=== PATIENT | male | born 1990 | race Caucasian/White ===

== ENCOUNTER 2018-04-24 19:24 | Emergency (ER) | payer OTHER ==
[2018-04-24 20:21] LABS: ABS Basophils 0 10^3/ul (0-0.2); ABS Eosinophils 0 10^3/ul (0-0.6); ABS Lymphocytes 1.2 10^3/ul (1.0-4.8); ABS Monocytes 0.4 10^3/ul (0-0.8); ABS Nucleated RBC 0 10^3/ul; Eosinophil % 0.1 % (0-6); Hematocrit 44 % (42-52); Hemoglobin 15.2 g/dl (14.0-18.0); Lymphocyte % 26.6 % (25-47); Mean Corpuscular HGB Conc 35 g/dl (31-36); Mean Corpuscular Hemoglobin 33 pg (27-31); Mean Corpuscular Volume 93 fL (80-94); Mean Platelet Volume 8.8 um3 (7.4-10.4); Nucleated Red Blood Cells % 0.1; Platelet Count 166 10^3/ul (150-450); Red Blood Count 4.68 10^6/ul (4.00-5.40); Red Cell Distribution Width 13 % (10.5-15); White Blood Count 4.6 10^3/ul (3.5-10.8)
[2018-04-24 20:46] LABS: EGFR Non-African American 86.3 (>60)
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
[2018-04-24 21:10] VITALS: BP 120/74
--- NOTE | 2018-04-25 07:28 | RAD ---
Indication: Confusion. 2 views of the chest including dual energy PA views demonstrate no mediastinal shift. Heart is of normal size and configuration. Lung caal are clear. IMPRESSION: No active cardiopulmonary disease is noted.
== END 2018-04-24 21:09 | disposition home or self-care (01) ==
LOC: ED 19:24
DX: F41.0 Panic disorder [episodic paroxysmal anxiety] (principal); R06.02 Shortness of breath; R07.89 Other chest pain; Z85.71 Personal history of Hodgkin lymphoma; F17.200 Nicotine dependence, unspecified, uncomplicated
CPT/HCPCS: 36415; 71046; 80053; 84484; 85025; 85379; 86140; 93005; 99283

== ENCOUNTER 2019-02-01 15:52 | Emergency (ER) | payer OTHER ==
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
[2019-02-01 16:43] LABS: ABS Basophils 0 10^3/ul (0-0.2); ABS Eosinophils 0 10^3/ul (0-0.6); ABS Lymphocytes 0.8 10^3/ul (1.0-4.8); ABS Monocytes 0.4 10^3/ul (0-0.8); ABS Neutrophils 5.5 10^3/ul (1.5-7.7); ABS Nucleated RBC 0 10^3/ul; Eosinophil % 0.3 %; Hematocrit 44 % (36-46); Hemoglobin 15.4 g/dL (14.0-18.0); Lymphocyte % 12.1 %; Mean Corpuscular HGB Conc 35 g/dL (31-36); Mean Corpuscular Hemoglobin 34 pg (27-31); Mean Corpuscular Volume 96 fL (80-94); Mean Platelet Volume 8.4 fL (7.4-10.4); Nucleated Red Blood Cells % 0; Platelet Count 170 10^3/uL (150-450); Red Blood Count 4.56 10^6 /uL (4.18-5.48); Red Cell Distribution Width 13 % (10.5-15); White Blood Count 6.8 10^3/uL (3.5-10.8)
[2019-02-01 16:53] LABS: Activated Partial Thrombo Time 27.6 seconds (26.0-36.3); INR 0.91 (0.82-1.09)
--- OUTSIDE RECORDS SUMMARY | 2019-02-01 16:55 | XMS REPORT | Continuity of Care Document ---
:1990 External Reference #:[id number] Author Name Odilontorres Macie Care Team Providers Name Role Phone Deepthi Banuelos M.D. Primary Care Physician Unavailable Payers Date Identification Numbers Payment Provider Subscriber Effective: 2010 Policy Number: [id number] [facility] Tena M Claudio Expires: 2017 Group Number: [id number] [address] PayID: [id number] [place] [address] Policy Number: [id number] Jim Carrasco Group Number: [id number] [address] PayID: [id number] [place] [address] Advance Directives Description No Information Available Problems Active Problems Provider Date Other Hodgkin lymphoma, unspecified site Lane Woo M.D. Onset: [address]obia [address] Woo M.D. Onset: 05/16/[address] epididymis [address] Woo M.D. Onset: 06/28/2018 Family History Date Family Member(s) Observation Comments : (age 59 Father due to Liver Alcoholic cirrhosis Years) Disease Mother No Current Problems Social History Type Date Description Comments Sex Unknown Marital Status Lives With Roommate Occupation Self-employed online sales Tobacco Use Start: Unknown Light tobacco smoker (10 or fewer cigarettes/day) Smoking Status Reviewed: 01/27/19 Light tobacco smoker (10 or fewer cigarettes/day) ETOH Use Drinks 5 Alcoholic Beverages Per Week Tobacco Use Start: Unknown Light tobacco smoker (10 or fewer cigarettes/day) Recreational Drug Use Denies Drug Use Allergies, Adverse Reactions, Alerts Description No Known Drug Allergies Medications Active Medications SIG Qnty Indications Ordering Provider Date Hydroxyzine HCL 1-2 tabs by mouth 60tabs G47.00 Deepthi Banuelos MD 01/27/2019 25mg at bedtime as Tablets needed insomnia Alprazolam 1/2 by mouth once 20tabs F41.0 Deepthi Banuelos MD 12/27/2018 0.5mg a day as needed Tablets for anxiety History Medications Escitalopram Oxalate 1 by mouth every 30tabs F41.9 Deepthi Banuelos MD 2017 - day 12/27/2018 10mg Tablets Alprazolam one by mouth up 14tabs F41.0 Deepthi Banuelos MD 05/16/2018 - 0.25mg to two times 12/27/2018 Tablets daily as needed for anxiety No Active Medications Unknown 02/10/2018 - 05/16/2018 Immunizations CPT Code Status Date Vaccine Lot # [id number] Given 06/28/2018 Influenza Virus Vaccine, Quadrivalent, Split, [id number] Preservative Free Vital Signs Date Vital Result Comment 01/27/2019 9:20am Height 67 inches 5'7" Weight 143.00 lb Heart Rate 65 /min BP Systolic Sitting 123 mmHg BP Diastolic Sitting 74 mmHg BMI (Body Mass Index) 22.4 kg/m2 12/27/2018 9:23am Height 67 inches 5'7" Weight 140.50 lb Heart Rate 97 /min BP Systolic 149 mmHg BP Diastolic 81 mmHg Body Temperature 97.9 F O2 % BldC Oximetry 100 % BMI (Body Mass Index) 22.0 kg/m2 09/20/2018 9:56am Height 67 inches 5'7" Weight 141.00 lb Heart Rate 112 /min BP Systolic Sitting 118 mmHg BP Diastolic Sitting 80 mmHg Body Temperature 98.0 F O2 % BldC Oximetry 98 % BMI (Body Mass Index) 22.1 kg/m2 06/28/2018 7:45am Height 67 inches 5'7" Weight 137.00 lb Heart Rate 64 /min BP Systolic 110 mmHg BP Diastolic 70 mmHg Body Temperature 98.0 F O2 % BldC Oximetry 98 % BMI (Body Mass Index) 21.5 kg/m2 05/16/2018 7:58am Height 67 inches 5'7" Weight 132.00 lb Heart Rate 94 /min BP Systolic Sitting 122 mmHg BP Diastolic Sitting 64 mmHg Body Temperature 98.2 F O2 % BldC Oximetry 97 % BMI (Body Mass Index) 20.7 kg/m2 03/24/2018 3:07pm Height 67 inches 5'7" Weight 136.00 lb Heart Rate 77 /min BP Systolic Sitting 115 mmHg BP Diastolic Sitting 78 mmHg Body Temperature 98.5 F O2 % BldC Oximetry 98 % BMI (Body Mass Index) 21.3 kg/m2 02/10/2018 3:13pm Height 67 inches 5'7" Weight 139.00 lb Heart Rate 75 /min BP Systolic 125 mmHg BP Diastolic 82 mmHg O2 % BldC Oximetry 99 % BMI (Body Mass Index) 21.8 kg/m2 Results Test Date Facility Test Result H/L Range Note CBC Auto Diff 03/21/2018 [facility] White Blood 3.9 10^3/uL N 3.5-10.[address] [place] [address] [phone] Red Blood Count 4.80 10^6/uL N 4.0-5.4 Hemoglobin 15.3 g/dL N 14.0-18.0 Hematocrit 45 % N 42-52 Mean Corpuscular Volume 93 fL N 80-94 Mean Corpuscular Hemoglobin 32 pg High 27-31 Mean Corpuscular HGB Conc 34 g/dL N 31-36 Red Cell Distribution Width 13 % N 10.5-15 Platelet Count 169 10^3/uL N 150-450 Mean Platelet Volume 8.9 um3 N 7.4-10.4 Abs Neutrophils 1.6 10^3/uL N 1.5-7.7 Abs Lymphocytes 1.8 10^3/uL N 1.0-4.8 Abs Monocytes 0.4 10^3/uL N 0-0.8 Abs Eosinophils 0 10^3/uL N 0-0.6 Abs Basophils 0 10^3/uL N 0-0.2 Abs Nucleated RBC 0 10^3/uL Granulocyte % 41.9 % N 38-83 Lymphocyte % 46.1 % N 25-47 Monocyte % 10.9 % High 0-7 Eosinophil % 0.7 % N 0-6 Basophil % 0.4 % N 0-2 Nucleated Red Blood Cells % 0.2 Comp Metabolic Panel 03/21/2018 [facility] Sodium 141 mmol/L N 139-[address] [place] [address] [phone] Potassium 4.1 mmol/L N 3.5-5.0 Chloride 104 mmol/L N 101-111 Co2 Carbon Dioxide 30 mmol/L N 22-32 Anion Gap 7 mmol/L N 2-11 Glucose 100 mg/dL N 70-100 Blood Urea Nitrogen 16 mg/dL N 6-24 Creatinine 1.09 mg/dL N 0.67-1.17 BUN/Creatinine Ratio 14.7 N 8-20 Calcium 10.1 mg/dL N 8.6-10.3 Total Protein 7.1 g/dL N 6.4-8.9 Albumin 4.9 g/dL N 3.2-5.2 Globulin 2.2 g/dL N 2-4 Albumin/Globulin Ratio 2.2 N 1-3 Total Bilirubin 1.90 mg/dL High 0.2-1.0 Alkaline Phosphatase 58 U/L N 34-104 Alt 15 U/L N 7-52 Ast 23 U/L N 13-39 Egfr Non- 81.8 >60 Egfr 105.2 >60 1 Vitamin B12 And 03/21/2018 [facility] Vitamin B12 323 pg/mL N 180-914 2 Folate Serum [address] [place] [address] [phone] Folic Acid (Folate) > 20.00 ng/mL >3.99 3 Laboratory test 03/21/2018 [facility] Vitamin D 22.6 ng/mL N 20-[address]) [place] [address] [phone] TSH (Thyroid Stim Horm) 4.35 mcIU/mL N 0.34-5.60 5 Lipid Profile 03/21/2018 [facility] Triglycerides 52 mg/dL 6 (Trig/Chol/HDL) [address] [place] [address] [phone] Cholesterol 145 mg/dL 7 HDL Cholesterol 59.8 mg/dL 8 LDL Cholesterol 75 mg/dL 9 Basic Metabolic Panel 03/01/2017 [facility] Sodium 138 mmol/L N 133-145 [address] [place] [address] [phone] Potassium 3.6 mmol/L N 3.5-5.0 Chloride 102 mmol/L N 101-111 Co2 Carbon Dioxide 27 mmol/L N 22-32 Anion Gap 9 mmol/L N 2-11 Glucose 154 mg/dL High 70-100 Blood Urea Nitrogen 13 mg/dL N 6-24 Creatinine 1.03 mg/dL N 0.67-1.17 BUN/Creatinine Ratio 12.6 N 8-20 Calcium 9.4 mg/dL N 8.6-10.3 Egfr Non- 88.0 N >60 Egfr 113.2 N >60 10 CBC Auto Diff 01/29/2017 [facility] White Blood 5.3 10^3/uL N 3.5-10.[address] [place] [address] [phone] Red Blood Count 4.66 10^6/uL N 4.0-5.4 Hemoglobin 14.7 g/dL N 14.0-18.0 Hematocrit 43 % N 42-52 Mean Corpuscular Volume 93 fL N 80-94 Mean Corpuscular Hemoglobin 32 pg High 27-31 Mean Corpuscular HGB Conc 34 g/dL N 31-36 Red Cell Distribution Width 14 % N 10.5-15 Platelet Count 179 10^3/uL N 150-450 Mean Platelet Volume 9 um3 N 7.4-10.4 Abs Neutrophils 3.4 10^3/uL N 1.5-7.7 Abs Lymphocytes 1.5 10^3/uL N 1.0-4.8 Abs Monocytes 0.4 10^3/uL N 0-0.8 Abs Eosinophils 0 10^3/uL N 0-0.6 Abs Basophils 0 10^3/uL N 0-0.2 Abs Nucleated RBC 0.01 10^3/uL N Granulocyte % 63.5 % N 38-83 Lymphocyte % 28.5 % N 25-47 Monocyte % 7.3 % N 1-9 Eosinophil % 0.1 % N 0-6 Basophil % 0.6 % N 0-2 Nucleated Red Blood Cells % 0.1 N Comp Metabolic Panel 01/29/2017 [facility] Sodium 139 mmol/L N 133-[address] [place] [address] [phone] Potassium 3.9 mmol/L N 3.5-5.0 Chloride 104 mmol/L N 101-111 Co2 Carbon Dioxide 29 mmol/L N 22-32 Anion Gap 6 mmol/L N 2-11 Glucose 127 mg/dL High 70-100 Blood Urea Nitrogen 15 mg/dL N 6-24 Creatinine 1.24 mg/dL High 0.67-1.17 BUN/Creatinine Ratio 12.1 N 8-20 Calcium 9.8 mg/dL N 8.6-10.3 Total Protein 7.4 g/dL N 6.4-8.9 Albumin 4.9 g/dL N 3.2-5.2 Globulin 2.5 g/dL N 2-4 Albumin/Globulin Ratio 2.0 N 1-3 Total Bilirubin 1.90 mg/dL High 0.2-1.0 Alkaline Phosphatase 47 U/L N 34-104 Alt 11 U/L N 7-52 Ast 18 U/L N 13-39 Egfr Non- 71.0 N >60 Egfr 91.3 N >60 11 Laboratory test finding 01/29/2017 [facility] LDH 102 U/L Low 140-271 [address] [place] [address] [phone] 1 Because ethnic data is not always readily available, this report includes an eGFR for both -Americans and non- Americans. The National Kidney Disease Education Program (NKDEP) does not endorse the use of the MDRD equation for patients that are not between the ages of 18 and 70, are , have extremes of body size, muscle mass, or nutritional status, or are non- or non-. According to the National Kidney Foundation, irrespective of diagnosis, the stage of the disease is based on the level of kidney function: Stage Description GFR(mL/min/1.73 m(2)) 1 Kidney damage with normal or decreased GFR 90 2 Kidney damage with mild decrease in GFR 60-89 3 Moderate decrease in GFR 30-59 4 Severe decrease in GFR 15-29 5 Kidney failure <15 (or dialysis) 2 Normal Range 180 to 914 Indeterminate Range 145 to 180 Deficient Range <145 3 FASTING 12 HOUR 4 FASTING 12 HOUR 5 FASTING 12 HOUR 6 Desirable: <150 Borderline High: 150-199 High: 200-499 Very High: >500 7 Desirable: <200 Borderline High: 200-239 High: >239 8 Low: <40 Desirable: 40-60 High: >60 9 Desirable: <100 Near Optimal: 100-129 Borderline High: 130-159 High: 160-189 Very High: >189 10 Because ethnic data is not always readily available, this report includes an eGFR for both -Americans and non- Americans. The National Kidney Disease Education Program (NKDEP) does not endorse the use of the MDRD equation for patients that are not between the ages of 18 and 70, are , have extremes of body size, muscle mass, or nutritional status, or are non- or non-. According to the National Kidney Foundation, irrespective of diagnosis, the stage of the disease is based on the level of kidney function: Stage Description GFR(mL/min/1.73 m(2)) 1 Kidney damage with normal or decreased GFR 90 2 Kidney damage with mild decrease in GFR 60-89 3 Moderate decrease in GFR 30-59 4 Severe decrease in GFR 15-29 5 Kidney failure <15 (or dialysis) 11 Because ethnic data is not always readily available, this report includes an eGFR for both -Americans and non- Americans. The National Kidney Disease Education Program (NKDEP) does not endorse the use of the MDRD equation for patients that are not between the ages of 18 and 70, are , have extremes of body size, muscle mass, or nutritional status, or are non- or non-. According to the National Kidney Foundation, irrespective of diagnosis, the stage of the disease is based on the level of kidney function: Stage Description GFR(mL/min/1.73 m(2)) 1 Kidney damage with normal or decreased GFR 90 2 Kidney damage with mild decrease in GFR 60-89 3 Moderate decrease in GFR 30-59 4 Severe decrease in GFR 15-29 5 Kidney failure <15 (or dialysis) Procedures Date Code Description Status 06/22/2014 66162 Diffusing Capacity Completed 06/22/2014 11551 Spirometry Incl Graphic Record Completed 06/22/2014 02750 ECHO Transthorasic Realtime 2D W Doppler & Color Flow Hosp Completed Encounters Type Date Location Provider Dx Diagnosis Office Visit 01/27/2019 [facility] Deepthi Banuelos MD F41.9 Anxiety disorder, 9:20a Medicine unspecified C81.70 Other Hodgkin lymphoma, unspecified site G47.00 Insomnia, unspecified Office Visit 01/06/2019 [facility] Ramana Moreira, 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 Office Visit 12/27/2018 [facility] Deepthi Banuelos, D48.5 Neoplasm of uncertain 9:40a Medicine - [place] behavior of skin Rd R03.0 Elevated blood-pressure reading, w/o diagnosis of htn F17.210 Nicotine dependence, cigarettes, uncomplicated F41.9 Anxiety disorder, unspecified L98.9 Disorder of the skin and subcutaneous tissue, unspecified Office Visit 09/20/2018 10:00a [facility] Deepthi Banuelos, F41.9 Anxiety disorder, Medicine - MD unspecified [address] Office Visit 06/28/2018 7:40a [facility] Lane N50.89 Other specified Medicine - Amna, disorders of the [address] M.D. male genital organs Z23 Encounter for immunization Office Visit 05/16/2018 8:00a [facility] [address] Woo, F41.0 Panic disorder Medicine - M.DChristina [episodic [address] paroxysmal anxiety] Office Visit 03/24/2018 3:00p [facility] [address] Woo, R53.83 Other fatigue Medicine - M.DChristina [address] Office Visit 02/10/2018 3:20p [facility] Woo, Z00.01 Encounter for Medicine - M.DChristina general adult [address] medical exam w abnormal findings R53.83 Other fatigue R19.4 Change in bowel habit C81.70 Other Hodgkin lymphoma, unspecified site Z13.220 Encounter for screening for lipoid disorders F17.210 Nicotine dependence, cigarettes, uncomplicated Z00.00 Encntr for general adult medical exam w/o abnormal findings Office Visit 04/01/2011 Neurosurgery Carlton Wolf 722.10 Intervertebral Disc 2:15p [facility] Clementine Morales 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 In the meantime I encourage you to try the Lexapro, and remember that it will take 4-6 weeks for any significant change in your symptoms. If you have any side effects, and the most common ones are upset stomach or nausea , they should fade after a couple of weeks. Also to minimize that have it in the morning with food.I recommend you schedule some regular time outside and in nature.Follow up:2 moC81.70 Other Hodgkin lymphoma, unspecified siteReferral: Ernesto Villavicencio M.D., Hematology & QaonlmsbV98.00 Insomnia, unspecifiedNew Medication:Hydroxyzine HCL 25 mg - 1-2 tabs by mouth at bedtime as needed insomniaComments:try hydroxyzine for sleep
[2019-02-01 16:59] LABS: Albumin 4.8 g/dL (3.2-5.2); Albumin/Globulin Ratio 1.9 (1-3); BUN/Creatinine Ratio 15.8 (8-20); Calcium 9.7 mg/dL (8.6-10.3); EGFR African American 107.2 (>60); EGFR Non-African American 88.6 (>60); Globulin 2.5 g/dL (2-4); Potassium 3.9 mmol/L (3.5-5.0); Total Bilirubin 0.9 mg/dL (0.2-1.0); Total Protein 7.3 g/dL (6.4-8.9)
[2019-02-01 17:01] LABS: Troponin I 0.03 ng/mL (<0.04)
[2019-02-01] MEDS ORDERED: Acetaminophen TAB* 325 MG ONE (18:15)
[2019-02-01] MEDS ORDERED: Acetaminophen TAB* 325 MG PO ONE (18:16)
[2019-02-01 18:21] VITALS: BP 121/69
== END 2019-02-01 18:22 | disposition home or self-care (01) ==
LOC: ED 15:52
DX: R00.2 Palpitations (principal); F41.9 Anxiety disorder, unspecified; R50.9 Fever, unspecified; F17.210 Nicotine dependence, cigarettes, uncomplicated; Z85.79 Personal history of other malignant neoplasms of lymphoid, hematopoietic and related tissues
CPT/HCPCS: 36415; 71045; 80053; 83605; 83880; 84484; 85025; 85379; 85610; 85730; 93005; 99282; A9270-GY

== ENCOUNTER 2019-02-06 17:56 | Emergency (ER) | payer OTHER ==
[2019-02-06 18:10] VITALS: BP 137/75
[2019-02-06] MEDS ORDERED: hydrOXYzine HCL TAB* 25 MG PO ONE (18:28)
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
== END 2019-02-06 18:55 | disposition home or self-care (01) ==
LOC: UCEAST 17:56
DX: F41.9 Anxiety disorder, unspecified (principal); R07.89 Other chest pain; Z85.71 Personal history of Hodgkin lymphoma; F17.210 Nicotine dependence, cigarettes, uncomplicated
CPT/HCPCS: 99212; A9270-GY; G0463

== ENCOUNTER → 2019-02-09 18:40 | Emergency (ER) | payer OTHER ==
[~2019-02-09 18:40] MED LIST: LORazepam TAB(*) 1 MG PO ONE; NS 0.9% 1000 ML** 1,000 ML IV ONE
[2019-02-09 19:36] LABS: ABS Lymphocytes 1.6 10^3/ul (1.0-4.8); ABS Monocytes 0.6 10^3/ul (0-0.8); ABS Neutrophils 3.5 10^3/ul (1.5-7.7); Eosinophil % 0.1 %; Hematocrit 48 % (42-52); Hemoglobin 16.4 g/dL (14.0-18.0); Mean Corpuscular HGB Conc 34 g/dL (31-36); Mean Corpuscular Hemoglobin 33 pg (27-31); Mean Corpuscular Volume 97 fL (80-94); Mean Platelet Volume 8.5 fL (7.4-10.4); Platelet Count 212 10^3/uL (150-450); Red Blood Count 4.97 10^6 /uL (4.18-5.48); Red Cell Distribution Width 14 % (10.5-15); White Blood Count 5.7 10^3/uL (3.5-10.8)
[2019-02-09 19:57] LABS: Albumin 5.3 g/dL (3.2-5.2); Albumin/Globulin Ratio 1.8 (1-3); BUN/Creatinine Ratio 9.6 (8-20); C Reactive Protein 11.01 mg/L (<8.01); Calcium 10.3 mg/dL (8.6-10.3); EGFR African American 103.7 (>60); EGFR Non-African American 85.7 (>60); Globulin 2.9 g/dL (2-4); Potassium 3.6 mmol/L (3.5-5.0); Total Bilirubin 0.7 mg/dL (0.2-1.0); Total Protein 8.2 g/dL (6.4-8.9)
[2019-02-09 20:37] LABS: TSH (Thyroid Stimulating Horm) 0.87 mcIU/mL (0.34-5.60)
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
[2019-02-10 00:13] VITALS: BP 127/81
== END | disposition home or self-care (01) ==
LOC: ED 18:40
DX: R07.89 Other chest pain (principal); F41.9 Anxiety disorder, unspecified; F17.210 Nicotine dependence, cigarettes, uncomplicated
CPT/HCPCS: 36415; 71045; 80053; 83605; 83690; 84443; 84484; 85025; 86140; 93005; 96374; 99282; A9270-GY

== ENCOUNTER 2019-04-21 03:06 | Emergency (ER) | payer OTHER ==
[2019-04-21] MEDS ORDERED: Magnesium Sulfate 2 GM IV* 2 GM/50 ML BAG IVPB ONE (03:59)
[2019-04-21] MEDS ORDERED: Metoclopramide IV* 5 MG/ML 2 ML VIAL IV SLOW PU ONE (03:59)
[2019-04-21] MEDS ORDERED: diPHENhydraMINE IV* 50 MG/ML 1 ml VIAL (BENADRYL) IV ONE (03:59)
[2019-04-21] MEDS ORDERED: Ketorolac INJ* 30 MG/ML 1 ML VIAL IV PUSH ONE (03:59)
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
[2019-04-21] MEDS ORDERED: Lactated Ringers 1000 ML Bag* 1,000 ML IV SCH (04:00)
[2019-04-21 07:03] VITALS: BP 110/74
== END 2019-04-21 07:02 | disposition home or self-care (01) ==
LOC: ED 03:06
DX: B34.9 Viral infection, unspecified (principal); F17.210 Nicotine dependence, cigarettes, uncomplicated; Z79.899 Other long term (current) drug therapy
CPT/HCPCS: 96365; 96375; 99283; J1200; J1885; J2765; J3475

== ENCOUNTER 2019-05-18 15:24 | Emergency (ER) | payer OTHER ==
--- OUTSIDE RECORDS SUMMARY | 2019-05-18 15:36 | XMS REPORT | Continuity of Care Document ---
:1990 External Reference #:[id number] Author Name Daniella Giang Care Team Providers Name Role Phone Deepthi Banuelos M.D. Primary Care Physician Unavailable Payers Date Identification Numbers Payment Provider Subscriber Effective: 2010 Policy Number: [id number] [facility] M Claudio Expires: 2017 Group Number: [id number] [address] PayID: [id number] [place] [address] Policy Number: [id number] Jim Carrasco Group Number: [id number] [address] Group Name: Medicaid Tanf/[place] [address] PayID: [id number] Problems Active Problems Provider Date Other Hodgkin lymphoma, unspecified site Lane Woo M.D. Onset: [address] agoraphobia [address] Woo M.D. Onset: 05/16/[address] of epididymis [address] Woo M.D. Onset: 06/28/2018 Abdominal pain Justo Anderson MD Onset: 04/24/2019 Anxiety state Justo Anderson MD Onset: 04/24/2019 Headache Justo Anderson MD Onset: 04/24/2019 Tachycardia Justo Anderson MD Onset: 04/24/2019 Family History Date Family Member(s) Observation Comments : (age 59 Father due to Liver Alcoholic cirrhosis Years) Disease Mother No Current Problems Social History Type Date Description Comments Sex Unknown Marital Status Lives With Roommate Occupation Self-employed online sales Tobacco Use Start: Unknown Light tobacco smoker (10 or fewer cigarettes/day) Smoking Status Reviewed: 05/10/19 Light tobacco smoker (10 or fewer cigarettes/day) ETOH Use Drinks 5 Alcoholic Admits to more than Beverages Per Week this Tobacco Use Start: Unknown Light tobacco smoker (10 or fewer cigarettes/day) Recreational Drug Use Denies Drug Use Exercise Type/Frequency Exercises regularly Allergies, Adverse Reactions, Alerts Description No Known Drug Allergies Medications Active Medications SIG Qnty Indications Ordering Provider Date Escitalopram Oxalate 1 by mouth every 30tabs F41.9 Deepthi Banuelos MD 2018 day 20mg Tablets Hydroxyzine HCL 1-2 tabs by mouth 60tabs G47.00 Deepthi Banuelos MD 01/27/2019 25mg at bedtime as Tablets needed insomnia Alprazolam 1/2 by mouth once 20tabs F41.0 Deepthi Banuelos MD 12/27/2018 0.5mg a day as needed Tablets for anxiety History Medications Escitalopram Oxalate 1 by mouth every 30tabs F41.9 Deepthi Banuelos MD 2018 - day 03/09/2019 10mg Tablets Escitalopram Oxalate 1 by mouth every 30tabs F41.9 Deepthi Banuelos MD 2017 - day 12/27/2018 10mg Tablets Alprazolam one by mouth up 14tabs F41.0 Deepthi Banuelos MD 05/16/2018 - 0.25mg to two times 12/27/2018 Tablets daily as needed for anxiety No Active Medications Unknown 02/10/2018 - 05/16/2018 Immunizations CPT Code Status Date Vaccine Lot # [id number] Given 06/28/2018 Influenza Virus Vaccine, Quadrivalent, Split, [id number] Preservative Free Vital Signs Date Vital Result Comment 05/10/2019 12:54pm Height 67 inches 5'7" Weight 145.00 lb Heart Rate 66 /min BP Systolic Sitting 128 mmHg Rue reg cuff BP Diastolic Sitting 77 mmHg Rue reg cuff BP Systolic Standing 128 mmHg Rue reg cuff BP Diastolic Standing 81 mmHg Rue reg cuff Respiratory Rate 18 /min BMI (Body Mass Index) 22.7 kg/m2 Ejection Fraction 45-50% Echo 03/22/19 05/05/2019 9:38am Height 67 inches 5'7" Weight 144.50 lb Heart Rate 70 /min BP Systolic 130 mmHg BP Diastolic 82 mmHg Body Temperature 97.3 F O2 % BldC Oximetry 99 % BMI (Body Mass Index) 22.6 kg/m2 04/24/2019 1:43pm Height 67 inches 5'7" Weight 144.00 lb Heart Rate 114 /min BP Systolic 138 mmHg BP Diastolic 82 mmHg O2 % BldC Oximetry 98 % BMI (Body Mass Index) 22.6 kg/m2 03/09/2019 10:14am Height 67 inches 5'7" Weight 143.00 lb Heart Rate 86 /min BP Systolic 100 mmHg BP Diastolic 60 mmHg Body Temperature 98.2 F O2 % BldC Oximetry 96 % BMI (Body Mass Index) 22.4 kg/m2 01/27/2019 9:20am Height 67 inches 5'7" Weight [...] Date Facility Test Result H/L Range Note Order 04/24/2019 [facility] In-House EKG <pending> Urinalysis Profile 04/24/2019 [facility] Urine Color Yellow [address] [place] [address] [phone] Urine Appearance Clear Urine Specific [place] 1.012 Normal 1.010-1.030 Urine pH 7.0 Normal 5-9 Urine Urobilinogen Negative Negative Urine Ketones Negative Negative Urine Protein Negative Negative Urine Leukocytes Negative Negative Urine Blood Negative Negative Urine Nitrite Negative Negative Urine Bilirubin Negative Negative Urine Glucose Negative Negative CBC Auto 04/24/2019 [facility] White Blood 4.4 10^3/uL Normal 3.5-10.[address] [place] [address] [phone] Red Blood Count 4.86 10^6/uL Normal 4.18-5.48 Hemoglobin 16.2 g/dL Normal 14.0-18.0 Hematocrit 48 % Normal 42-52 Mean Corpuscular Volume 98 fL High 80-94 Mean Corpuscular Hemoglobin 33 pg High 27-31 Mean Corpuscular HGB Conc 34 g/dL Normal 31-36 Red Cell Distribution Width 13 % Normal 10-15 Platelet Count 188 10^3/uL Normal 150-450 Mean Platelet Volume 9.0 fL Normal 7.4-10.4 Abs Neutrophils 3.3 10^3/uL Normal 1.5-7.7 Abs Lymphocytes 0.6 10^3/uL Low 1.0-4.8 Abs Monocytes 0.4 10^3/uL Normal 0-0.8 Abs Eosinophils 0.0 10^3/uL Normal 0-0.6 Abs Basophils 0.0 10^3/uL Normal 0-0.2 Abs Nucleated RBC 0.0 10^3/uL Granulocyte % 75.8 % Lymphocyte % 13.9 % Monocyte % 9.7 % Eosinophil % 0.3 % Basophil % 0.3 % Nucleated Red Blood Cells % 0.1 Comp Metabolic 04/24/2019 [facility] Sodium 139 mmol/L Normal 135-[address] [place] [address] [phone] Potassium 4.1 mmol/L Normal 3.5-5.0 Chloride 102 mmol/L Normal 101-111 Co2 Carbon Dioxide 30 mmol/L Normal 22-32 Anion Gap 7 mmol/L Normal 2-11 Glucose 102 mg/dL High 70-100 Blood Urea Nitrogen 11 mg/dL Normal 6-24 Creatinine 1.02 mg/dL Normal 0.67-1.17 BUN/Creatinine Ratio 10.8 Normal 8-20 Calcium 10.2 mg/dL Normal 8.6-10.3 Total Protein 7.4 g/dL Normal 6.4-8.9 Albumin 4.9 g/dL Normal 3.2-5.2 Globulin 2.5 g/dL Normal 2-4 Albumin/Globulin Ratio 2.0 Normal 1-3 Total Bilirubin 1.00 mg/dL Normal 0.2-1.0 Alkaline Phosphatase 67 U/L Normal 34-104 Alt 51 U/L Normal 7-52 Ast 44 U/L High 13-39 Egfr Non- 87.6 >60 Egfr 106.0 >60 2 Laboratory test 04/24/2019 [facility] Magnesium 2.2 mg/dL Normal 1.9-2.7 finding [address] [place] [address] [phone] Urinalysis 04/24/2019 [facility] Urine Color Colorless Profile [address] [place] [address] [phone] Urine Appearance Clear Urine Specific [place] 1.003 Low 1.010-1.030 Urine pH 8.0 Normal 5-9 Urine Urobilinogen Negative Negative Urine Ketones Negative Negative Urine Protein Negative Negative Urine Leukocytes Negative Negative Urine Blood Negative Negative Urine Nitrite Negative Negative Urine Bilirubin Negative Negative Urine Glucose Negative Negative Laboratory 04/24/2019 [facility] Free T4 (Free 0.76 Normal 0.61-1.12 test finding 101 [facility] Thyroxine) ng/[place] [address] [phone] T3 Free 3.60 pg/mL Normal 2.5-3.9 TSH (Thyroid Stim Horm) 1.65 mcIU/mL Normal 0.34-5.60 Erythrocyte Sed Rate 0 mm/Hr Normal 0-14 CBC Auto 02/09/2019 [facility] White Blood 5.7 10^3/uL Normal 3.5-10.8 Diff 101 [facility] [place] [address] [phone] Red Blood Count 4.97 10^6/uL Normal 4.18-5.48 Hemoglobin 16.4 g/dL Normal 14.0-18.0 Hematocrit 48 % Normal 42-52 Mean Corpuscular Volume 97 fL High 80-94 Mean Corpuscular Hemoglobin 33 pg High 27-31 Mean Corpuscular HGB Conc 34 g/dL Normal 31-36 Red Cell Distribution Width 14 % Normal 10.5-15 Platelet Count 212 10^3/uL Normal 150-450 Mean Platelet Volume 8.5 fL Normal 7.4-10.4 Abs Neutrophils 3.5 10^3/uL Normal 1.5-7.7 Abs Lymphocytes 1.6 10^3/uL Normal 1.0-4.8 Abs Monocytes 0.6 10^3/uL Normal 0-0.8 Abs Eosinophils 0.0 10^3/uL Normal 0-0.6 Abs Basophils 0.0 10^3/uL Normal 0-0.2 Abs Nucleated RBC 0.0 10^3/uL Granulocyte % 61.3 % Lymphocyte % 28.0 % Monocyte % 10.1 % Eosinophil % 0.1 % Basophil % 0.5 % Nucleated Red Blood Cells % 0.0 Laboratory 02/09/2019 [facility] Lactic 4.9 mmol/L Critical 0.5-2.0 3 test finding [address] [place] [address] [phone] Troponin-I (TnI) 0.00 ng/mL <0.04 4 Comp Metabolic 02/09/2019 [facility] Sodium 144 mmol/L Normal 135-[address] [place] [address] [phone] Potassium 3.6 mmol/L Normal 3.5-5.0 Chloride 105 mmol/L Normal 101-111 Co2 Carbon Dioxide 22 mmol/L Normal 22-32 Anion Gap 17 mmol/L High 2-11 Glucose 109 mg/dL High 70-100 Blood Urea Nitrogen 10 mg/dL Normal 6-24 Creatinine 1.04 mg/dL Normal 0.67-1.17 BUN/Creatinine Ratio 9.6 Normal 8-20 Calcium 10.3 mg/dL Normal 8.6-10.3 Total Protein 8.2 g/dL Normal 6.4-8.9 Albumin 5.3 g/dL High 3.2-5.2 Globulin 2.9 g/dL Normal 2-4 Albumin/Globulin Ratio 1.8 Normal 1-3 Total Bilirubin 0.70 mg/dL Normal 0.2-1.0 Alkaline Phosphatase 64 U/L Normal 34-104 Alt 36 U/L Normal 7-52 Ast 43 U/L High 13-39 Egfr Non- 85.7 >60 Egfr 103.7 >60 5 Laboratory test 02/09/2019 [facility] Lipase 36 U/L Normal 11.0-82.[address] [place] [address] [phone] C Reactive Protein 11.01 mg/L High <8.01 TSH (Thyroid Stim Horm) 0.87 mcIU/mL Normal 0.34-5.60 CBC Auto 02/01/2019 [facility] White Blood 6.8 10^3/uL Normal 3.5-10.[address] [place] [address] [phone] Red Blood Count 4.56 10^6/uL Normal 4.18-5.48 Hemoglobin 15.4 g/dL Normal 14.0-18.0 Hematocrit 44 % Normal 36-46 Mean Corpuscular Volume 96 fL High 80-94 Mean Corpuscular Hemoglobin 34 pg High 27-31 Mean Corpuscular HGB Conc 35 g/dL Normal 31-36 Red Cell Distribution Width 13 % Normal 10.5-15 Platelet Count 170 10^3/uL Normal 150-450 Mean Platelet Volume 8.4 fL Normal 7.4-10.4 Abs Neutrophils 5.5 10^3/uL Normal 1.5-7.7 Abs Lymphocytes 0.8 10^3/uL Low 1.0-4.8 Abs Monocytes 0.4 10^3/uL Normal 0-0.8 Abs Eosinophils 0 10^3/uL Normal 0-0.6 Abs Basophils 0 10^3/uL Normal 0-0.2 Abs Nucleated RBC 0 10^3/uL Granulocyte % 80.9 % Lymphocyte % 12.1 % Monocyte % 6.3 % Eosinophil % 0.3 % Basophil % 0.4 % Nucleated Red Blood Cells % 0 Inr/Protime 02/01/2019 [facility] Inr 0.91 Normal 0.82-1.[address] [place] [address] [phone] Laboratory test 02/01/2019 [facility] Partial 27.6 Normal 26.0 -36.[address] [place] [address] Time PTT [phone] D Dimer Quantitative < 200 ng/mL Normal Less Than 230 7 Lactic Acid 1.7 mmol/L Normal 0.5-2.0 8 Laboratory test 02/01/2019 [facility] Troponin-I (TnI) 0.03 ng/ mL <0.[address] [place] [address] [phone] B-Type Natriuretic Peptide BNP 6 pg/mL <=100 Comp Metabolic 02/01/2019 [facility] Sodium 141 mmol/L Normal 135-[address] [place] [address] [phone] Potassium 3.9 mmol/L Normal 3.5-5.0 Chloride 106 mmol/L Normal 101-111 Co2 Carbon Dioxide 28 mmol/L Normal 22-32 Anion Gap 7 mmol/L Normal 2-11 Glucose 104 mg/dL High 70-100 Blood Urea Nitrogen 16 mg/dL Normal 6-24 Creatinine 1.01 mg/dL Normal 0.67-1.17 BUN/Creatinine Ratio 15.8 Normal 8-20 Calcium 9.7 mg/dL Normal 8.6-10.3 Total Protein 7.3 g/dL Normal 6.4-8.9 Albumin 4.8 g/dL Normal 3.2-5.2 Globulin 2.5 g/dL Normal 2-4 Albumin/Globulin Ratio 1.9 Normal 1-3 Total Bilirubin 0.90 mg/dL Normal 0.2-1.0 Alkaline Phosphatase 48 U/L Normal 34-104 Alt 32 U/L Normal 7-52 Ast 31 U/L Normal 13-39 Egfr Non- 88.6 >60 Egfr 107.2 >60 10 Comp Metabolic 01/27/2019 [facility] Sodium 139 mmol/L Normal 135-[address] [place] [address] [phone] Potassium 4.2 mmol/L Normal 3.5-5.0 Chloride 101 mmol/L Normal 101-111 Co2 Carbon Dioxide 28 mmol/L Normal 22-32 Anion Gap 10 mmol/L Normal 2-11 Glucose 88 mg/dL Normal 70-100 Blood Urea Nitrogen 18 mg/dL Normal 6-24 Creatinine 0.97 mg/dL Normal 0.67-1.17 BUN/Creatinine Ratio 18.6 Normal 8-20 Calcium 10.0 mg/dL Normal 8.6-10.3 Total Protein 7.0 g/dL Normal 6.4-8.9 Albumin 4.9 g/dL Normal 3.2-5.2 Globulin 2.1 g/dL Normal 2-4 Albumin/Globulin Ratio 2.3 Normal 1-3 Total Bilirubin 2.70 mg/dL High 0.2-1.0 Alkaline Phosphatase 57 U/L Normal 34-104 Alt 34 U/L Normal 7-52 Ast 39 U/L Normal 13-39 Egfr Non- 92.8 >60 Egfr 112.3 >60 11 CBC Auto 01/27/2019 [facility] White Blood 3.7 10^3/uL Normal 3.5-10.[address] [place] [address] [phone] Red Blood Count 4.86 10^6/uL Normal 4.18-5.48 Hemoglobin 16.0 g/dL Normal 14.0-18.0 Hematocrit 47 % High 36-46 Mean Corpuscular Volume 96 fL High 80-94 Mean Corpuscular Hemoglobin 33 pg High 27-31 Mean Corpuscular HGB Conc 34 g/dL Normal 31-36 Red Cell Distribution Width 14 % Normal 10.5-15 Platelet Count 189 10^3/uL Normal 150-450 Mean Platelet Volume 8.9 fL Normal 7.4-10.4 Abs Neutrophils 2.2 10^3/uL Normal 1.5-7.7 Abs Lymphocytes 1.0 10^3/uL Normal 1.0-4.8 Abs Monocytes 0.4 10^3/uL Normal 0-0.8 Abs Eosinophils 0 10^3/uL Normal 0-0.6 Abs Basophils 0 10^3/uL Normal 0-0.2 Abs Nucleated RBC 0 10^3/uL Granulocyte % 60.3 % Lymphocyte % 27.9 % Monocyte % 10.9 % Eosinophil % 0.5 % Basophil % 0.4 % Nucleated Red Blood Cells % 0 CBC Auto 03/21/2018 [facility] White Blood 3.9 10^3/uL Normal 3.5-10.[address] [place] [address] [phone] Red Blood Count 4.80 10^6/uL Normal 4.0-5.4 Hemoglobin 15.3 g/dL Normal 14.0-18.0 Hematocrit 45 % Normal 42-52 Mean Corpuscular Volume 93 fL Normal 80-94 Mean Corpuscular Hemoglobin 32 pg High 27-31 Mean Corpuscular HGB Conc 34 g/dL Normal 31-36 Red Cell Distribution Width 13 % Normal 10.5-15 Platelet Count 169 10^3/uL Normal 150-450 Mean Platelet Volume 8.9 um3 Normal 7.4-10.4 Abs Neutrophils 1.6 10^3/uL Normal 1.5-7.7 Abs Lymphocytes 1.8 10^3/uL Normal 1.0-4.8 Abs Monocytes 0.4 10^3/uL Normal 0-0.8 Abs Eosinophils 0 10^3/uL Normal 0-0.6 Abs Basophils 0 10^3/uL Normal 0-0.2 Abs Nucleated RBC 0 10^3/uL Granulocyte % 41.9 % Normal 38-83 Lymphocyte % 46.1 % Normal 25-47 Monocyte % 10.9 % High 0-7 Eosinophil % 0.7 % Normal 0-6 Basophil % 0.4 % Normal 0-2 Nucleated Red Blood Cells % 0.2 Comp Metabolic 03/21/2018 [facility] Sodium 141 mmol/L Normal 139-[address] [place] [address] [phone] Potassium 4.1 mmol/L Normal 3.5-5.0 Chloride 104 mmol/L Normal 101-111 Co2 Carbon Dioxide 30 mmol/L Normal 22-32 Anion Gap 7 mmol/L Normal 2-11 Glucose 100 mg/dL Normal 70-100 Blood Urea Nitrogen 16 mg/dL Normal 6-24 Creatinine 1.09 mg/dL Normal 0.67-1.17 BUN/Creatinine Ratio 14.7 Normal 8-20 Calcium 10.1 mg/dL Normal 8.6-10.3 Total Protein 7.1 g/dL Normal 6.4-8.9 Albumin 4.9 g/dL Normal 3.2-5.2 Globulin 2.2 g/dL Normal 2-4 Albumin/Globulin Ratio 2.2 Normal 1-3 Total Bilirubin 1.90 mg/dL High 0.2-1.0 Alkaline Phosphatase 58 U/L Normal 34-104 Alt 15 U/L Normal 7-52 Ast 23 U/L Normal 13-39 Egfr Non- 81.8 >60 Egfr 105.2 >60 12 Vitamin B12 03/21/2018 [facility] Vitamin B12 323 pg/mL Normal 180-914 13 And Folate [address] [place] [address] [phone] Folic Acid (Folate) > 20.00 ng/mL >3.99 14 Laboratory test 03/21/2018 [facility] Vitamin D 22.6 ng/mL Normal 20-50 [address] Total 25(Oh) [place] [address] [phone] TSH (Thyroid Stim Horm) 4.35 mcIU/mL Normal 0.34-5.60 16 Lipid Profile 03/21/2018 [facility] Triglycerides 52 mg/dL 17 (Trig/Chol/HDL) [address] [place] [address] [phone] Cholesterol 145 mg/dL 18 HDL Cholesterol 59.8 mg/dL 19 LDL Cholesterol 75 mg/dL 20 Basic Metabolic 03/01/2017 [facility] Sodium 138 mmol/L Normal 133-[address] [place] [address] [phone] Potassium 3.6 mmol/L Normal 3.5-5.0 Chloride 102 mmol/L Normal 101-111 Co2 Carbon Dioxide 27 mmol/L Normal 22-32 Anion Gap 9 mmol/L Normal 2-11 Glucose 154 mg/dL High 70-100 Blood Urea Nitrogen 13 mg/dL Normal 6-24 Creatinine 1.03 mg/dL Normal 0.67-1.17 BUN/Creatinine Ratio 12.6 Normal 8-20 Calcium 9.4 mg/dL Normal 8.6-10.3 Egfr Non- 88.0 Normal >60 Egfr 113.2 Normal >60 21 CBC Auto 01/29/2017 [facility] White Blood 5.3 10^3/uL Normal 3.5-10.[address] [place] [address] [phone] Red Blood Count 4.66 10^6/uL Normal 4.0-5.4 Hemoglobin 14.7 g/dL Normal 14.0-18.0 Hematocrit 43 % Normal 42-52 Mean Corpuscular Volume 93 fL Normal 80-94 Mean Corpuscular Hemoglobin 32 pg High 27-31 Mean Corpuscular HGB Conc 34 g/dL Normal 31-36 Red Cell Distribution Width 14 % Normal 10.5-15 Platelet Count 179 10^3/uL Normal 150-450 Mean Platelet Volume 9 um3 Normal 7.4-10.4 Abs Neutrophils 3.4 10^3/uL Normal 1.5-7.7 Abs Lymphocytes 1.5 10^3/uL Normal 1.0-4.8 Abs Monocytes 0.4 10^3/uL Normal 0-0.8 Abs Eosinophils 0 10^3/uL Normal 0-0.6 Abs Basophils 0 10^3/uL Normal 0-0.2 Abs Nucleated RBC 0.01 10^3/uL Normal Granulocyte % 63.5 % Normal 38-83 Lymphocyte % 28.5 % Normal 25-47 Monocyte % 7.3 % Normal 1-9 Eosinophil % 0.1 % Normal 0-6 Basophil % 0.6 % Normal 0-2 Nucleated Red Blood Cells % 0.1 Normal Comp Metabolic 01/29/2017 [facility] Sodium 139 mmol/L Normal 133-[address] [place] [address] [phone] Potassium 3.9 mmol/L Normal 3.5-5.0 Chloride 104 mmol/L Normal 101-111 Co2 Carbon Dioxide 29 mmol/L Normal 22-32 Anion Gap 6 mmol/L Normal 2-11 Glucose 127 mg/dL High 70-100 Blood Urea Nitrogen 15 mg/dL Normal 6-24 Creatinine 1.24 mg/dL High 0.67-1.17 BUN/Creatinine Ratio 12.1 Normal 8-20 Calcium 9.8 mg/dL Normal 8.6-10.3 Total Protein 7.4 g/dL Normal 6.4-8.9 Albumin 4.9 g/dL Normal 3.2-5.2 Globulin 2.5 g/dL Normal 2-4 Albumin/Globulin Ratio 2.0 Normal 1-3 Total Bilirubin 1.90 mg/dL High 0.2-1.0 Alkaline Phosphatase 47 U/L Normal 34-104 Alt 11 U/L Normal 7-52 Ast 18 U/L Normal 13-39 Egfr Non- 71.0 Normal >60 Egfr 91.3 Normal >60 22 Laboratory test finding 01/29/2017 [facility] LDH 102 U/L Low 140-[address] [place] [address] [phone] 1 [id number] 2 Because ethnic data is not always readily [...] 15-29 5 Kidney failure <15 (or dialysis) 3 Critical Result LACT:4.9 Called to [id number] at: 19:58:33 by:[id number] Read back by:[id number] [facility] Severe Sepsis and Septic Shock Management Bundle Measure requires all lactic acids initially measuring >2.0 mmol/L be repeated. 4 Troponin-I testing on Plasma Separator Tubes (PST) has a known false positive rate of 0.20-0.40%. All positive troponins reflex immediately to secondary confirmatory testing. Using the [employer] DxI 800 Access Immunoassay systems, the 99th percentile upper reference limit was demonstrated to be < 0.03 ng/mL. 5 Because ethnic data is not always readily [...] 15-29 5 Kidney failure <15 (or dialysis) 6 Standard intensity warfarin therapeutic range: 2.0-3.0 High intensity warfarin therapeutic range: 2.5-3.5 7 Please note: The following may produce a false positive D Dimer test: - Rheumatoid factor greater than 60 IU/ml - Plasma hemoglobin greater than 0.05 gm/dl - Bilirubin greater than 50 mg/dl - Lipids greater than 1000 mg/dl - FDP greater than 20 ug/ml 8 [facility] Severe Sepsis and Septic Shock Management Bundle Measure requires all lactic acids initially measuring >2.0 mmol/L be repeated. 9 Troponin-I testing on Plasma Separator Tubes (PST) has a known false positive rate of 0.20-0.40%. All positive troponins reflex immediately to secondary confirmatory testing. Using the [employer] DxI 800 Access Immunoassay systems, the 99th percentile upper reference limit was demonstrated to be < 0.03 ng/mL. 10 Because ethnic data is not always [...] 15-29 5 Kidney failure <15 (or dialysis) 12 Because ethnic data is not always readily [...] 15-29 5 Kidney failure <15 (or dialysis) 13 Normal Range 180 to 914 Indeterminate Range 145 to 180 Deficient Range <145 14 FASTING 12 HOUR 15 FASTING 12 HOUR 16 FASTING 12 HOUR 17 Desirable: <150 Borderline High: 150-199 High: 200-499 Very High: >500 18 Desirable: <200 Borderline High: 200-239 High: >239 19 Low: <40 Desirable: 40-60 High: >60 20 Desirable: <100 Near Optimal: 100-129 Borderline High: 130-159 High: 160-189 Very High: >189 21 Because ethnic data is not always readily [...] 15-29 5 Kidney failure <15 (or dialysis) 22 Because ethnic data is not always readily [...] (or dialysis) Procedures Date Code Description Status 05/10/2019 78973 EKG Tracing & Interpretation Completed 04/24/2019 35493 EKG Tracing & Interpretation Completed 03/22/2019 70806 ECHO Transthorasic Realtime 2D W Doppler & Color Flow Hosp Completed 06/22/2014 33353 Diffusing Capacity Completed 06/22/2014 38720 Spirometry Incl Graphic Record Completed 06/22/2014 59470 ECHO Transthorasic Realtime 2D W Doppler & Color Flow Hosp Completed Encounters Type Date Location Provider Dx Diagnosis Office Visit 05/05/2019 [facility] Internal Deepthi Banuelos MD F41.9 Anxiety disorder, 9:40a Medicine - Ccmob unspecified R00.0 Tachycardia, unspecified R93.1 Abnormal findings on dx imaging of heart and cor circ E04.1 Nontoxic single thyroid nodule Office Visit 04/24/2019 2:00p [facility] Internal Justo Anderson MD R10.30 Lower abdominal Medicine - Suite pain, unspecified R R51 Headache R00.0 Tachycardia, unspecified C81.70 Other Hodgkin lymphoma, unspecified site F41.9 Anxiety disorder, unspecified Office Visit 03/09/2019 10:00a [facility] Jennifer Banuelos F41.9 Anxiety disorder, Medicine - Ccmob unspecified G47.00 Insomnia, unspecified Office Visit 01/27/2019 9:20a [facility] Internal Deepthi Banuelos, F41.9 Anxiety disorder, Medicine - Ccmob unspecified C81.70 Other Hodgkin lymphoma, unspecified site G47.00 Insomnia, unspecified Office Visit 01/06/2019 [facility] Dermatology Ramana Edsofiaeulalio, L81.4 Other melanin 8:30a MD hyperpigmentation Office Visit 12/27/2018 [facility] Internal Deepthi Banuelos, D48.5 Neoplasm of uncertain 9:40a Medicine - Suite MD behavior of skin R R03.0 Elevated blood-pressure reading, w/o diagnosis of htn F17.210 Nicotine dependence, cigarettes, uncomplicated F41.9 Anxiety disorder, unspecified L98.9 Disorder of the skin and subcutaneous tissue, unspecified Office Visit 09/20/2018 10:00a [facility] Internal Deepthi Banuelos, F41.9 Anxiety disorder, Medicine - MD unspecified Suite R Office Visit 06/28/2018 7:40a [facility] Internal Lane N50.89 Other specified Medicine - P[place], disorders of the Suite R M.D. male genital organs Z23 Encounter for immunization Office Visit 05/16/2018 8:00a [facility] Internal Lane Woo, F41.0 Panic disorder Medicine - M.D. [episodic Suite R paroxysmal anxiety] Office Visit 03/24/2018 3:00p [facility] Internal Lane Woo, R53.83 Other fatigue Medicine - M.D. Suite R Office Visit 02/10/2018 3:20p [facility] Internal Lane Woo, Z00.01 Encounter for Medicine - M.D. general adult Suite R medical exam w abnormal findings R53.83 Other fatigue R19.4 Change in bowel habit C81.70 Other Hodgkin lymphoma, unspecified site Z13.220 Encounter for screening for lipoid disorders F17.210 Nicotine dependence, cigarettes, uncomplicated Z00.00 Encntr for general adult medical exam w/o abnormal findings Office Visit 04/01/2011 Neurosurgery Carlton Wolf 722.10 Intervertebral Disc 2:15p [facility] M.D. Displacement Lumbar W/O Myelopathy 724.3 Sciatica 305.1 Tobacco Use Disorder Plan of Treatment Future Appointment(s):07/19/2019 9:00 am - Dennis Rea M.D. at [facility]06/09/2019 8:45 am - [facility] ECHO Schedule at [facility]06/09/2019 9:15 am - Dennis Rea M.D. at [place] 9:20 am - Deep[facility] Banuelos MD at [facility] Dennis Rea M.D.R00.0 Tachycardia, unspecifiedNew Orders:Stress Test, Exercise Echocardiogram, Ordered: 05/10/19Follow up:2 [id number] Chest pain, [id number] Cardiomyopathy, unspecified
--- OUTSIDE RECORDS SUMMARY | 2019-05-18 15:37 | XMS REPORT | Continuity of Care Document ---
:1990 External Reference #:[id number] Author Name Mary Flores Care Team Providers Name Role Phone Deepthi Banuelos M.D. Primary Care Physician Unavailable Payers Date Identification Numbers Payment Provider Subscriber Effective: 2010 Policy Number: [id number] [facility] M Claudio Expires: 2017 Group Number: [id number] [address] PayID: [id number] [place] [address] Policy Number: [id number] Jim Carrasco Group Number: [id number] [address] Group Name: Medicaid [place]f/[place] [address] PayID: [id number] Problems Active Problems Provider Date Other Hodgkin [...] (10 or fewer cigarettes/day) Smoking Status Reviewed: 05/05/19 Light tobacco smoker (10 or fewer cigarettes/day) [...] CPT Code Status Date Vaccine Lot # [id number] Given 06/28/2018 Influenza Virus Vaccine, Quadrivalent, Split, [id number] Preservative Free Vital Signs Date Vital Result Comment 05/05/2019 9:38am Height 67 inches 5'7" Weight [...] Test Result H/L Range Note Order 04/24/2019 [employer] [facility] In-House EKG <pending> Urinalysis Profile 04/24/2019 [facility] Urine Color Yellow [address] [place] [address] [phone] Urine Appearance Clear Urine Specific Kenna 1.012 N 1.010-1.030 Urine pH 7.0 N 5-9 Urine Urobilinogen Negative Negative Urine Ketones Negative Negative Urine Protein Negative Negative Urine Leukocytes Negative Negative Urine Blood Negative Negative Urine Nitrite Negative Negative Urine Bilirubin Negative Negative Urine Glucose Negative Negative Laboratory test 04/24/2019 [facility] Free T4 (Free 0.76 ng/dL N 0.61-1.[address] Thyroxine) [place] [address] [phone] T3 Free 3.60 pg/mL N 2.5-3.9 TSH (Thyroid Stim Horm) 1.65 mcIU/mL N 0.34-5.60 Erythrocyte Sed Rate 0 mm/Hr N 0-14 CBC Auto Diff 04/24/2019 [facility] White Blood 4.4 10^3/uL N 3.5-10.[address] [place] [address] [phone] Red Blood Count 4.86 10^6/uL N 4.18-5.48 Hemoglobin 16.2 g/dL N 14.0-18.0 Hematocrit 48 % N 42-52 Mean Corpuscular Volume 98 fL High 80-94 Mean Corpuscular Hemoglobin 33 pg High 27-31 Mean Corpuscular HGB Conc 34 g/dL N 31-36 Red Cell Distribution Width 13 % N 10-15 Platelet Count 188 10^3/uL N 150-450 Mean Platelet Volume 9.0 fL N 7.4-10.4 Abs Neutrophils 3.3 10^3/uL N 1.5-7.7 Abs Lymphocytes 0.6 10^3/uL Low 1.0-4.8 Abs Monocytes 0.4 10^3/uL N 0-0.8 Abs Eosinophils 0.0 10^3/uL N 0-0.6 Abs Basophils 0.0 10^3/uL N 0-0.2 Abs Nucleated RBC 0.0 10^3/uL Granulocyte % 75.8 % Lymphocyte % 13.9 % Monocyte % 9.7 % Eosinophil % 0.3 % Basophil % 0.3 % Nucleated Red Blood Cells % 0.1 Comp Metabolic Panel 04/24/2019 [facility] Sodium 139 mmol/L N 135-[address] [place] [address] [phone] Potassium 4.1 mmol/L N 3.5-5.0 Chloride 102 mmol/L N 101-111 Co2 Carbon Dioxide 30 mmol/L N 22-32 Anion Gap 7 mmol/L N 2-11 Glucose 102 mg/dL High 70-100 Blood Urea Nitrogen 11 mg/dL N 6-24 Creatinine 1.02 mg/dL N 0.67-1.17 BUN/Creatinine Ratio 10.8 N 8-20 Calcium 10.2 mg/dL N 8.6-10.3 Total Protein 7.4 g/dL N 6.4-8.9 Albumin 4.9 g/dL N 3.2-5.2 Globulin 2.5 g/dL N 2-4 Albumin/Globulin Ratio 2.0 N 1-3 Total Bilirubin 1.00 mg/dL N 0.2-1.0 Alkaline Phosphatase 67 U/L N 34-104 Alt 51 U/L N 7-52 Ast 44 U/L High 13-39 Egfr Non- 87.6 >60 Egfr 106.0 >60 2 Urinalysis Profile 04/24/2019 [facility] Urine Color Colorless [address] [place] [address] [phone] Urine Appearance Clear Urine Specific Kenna 1.003 Low 1.010-1.030 Urine pH 8.0 N 5-9 Urine Urobilinogen Negative Negative Urine Ketones Negative Negative Urine Protein Negative Negative Urine Leukocytes Negative Negative Urine Blood Negative Negative Urine Nitrite Negative Negative Urine Bilirubin Negative Negative Urine Glucose Negative Negative Laboratory test 04/24/2019 [facility] Magnesium 2.2 mg/dL N 1.9-2.7 finding [address] [place] [address] [phone] Laboratory test 02/09/2019 [facility] Lipase 36 U/L N 11.0- 82.0 finding [address] [place] [address] [phone] C Reactive Protein 11.01 mg/L High <8.01 TSH (Thyroid Stim Horm) 0.87 mcIU/mL N 0.34-5.60 CBC Auto Diff 02/09/2019 [facility] White Blood 5.7 10^3/uL N 3.5-10.[address] [place] [address] [phone] Red Blood Count 4.97 10^6/uL N 4.18-5.48 Hemoglobin 16.4 g/dL N 14.0-18.0 Hematocrit 48 % N 42-52 Mean Corpuscular Volume 97 fL High 80-94 Mean Corpuscular Hemoglobin 33 pg High 27-31 Mean Corpuscular HGB Conc 34 g/dL N 31-36 Red Cell Distribution Width 14 % N 10.5-15 Platelet Count 212 10^3/uL N 150-450 Mean Platelet Volume 8.5 fL N 7.4-10.4 Abs Neutrophils 3.5 10^3/uL N 1.5-7.7 Abs Lymphocytes 1.6 10^3/uL N 1.0-4.8 Abs Monocytes 0.6 10^3/uL N 0-0.8 Abs Eosinophils 0.0 10^3/uL N 0-0.6 Abs Basophils 0.0 10^3/uL N 0-0.2 Abs Nucleated RBC 0.0 10^3/uL Granulocyte % 61.3 % Lymphocyte % 28.0 % Monocyte % 10.1 % Eosinophil % 0.1 % Basophil % 0.5 % Nucleated Red Blood Cells % 0.0 Laboratory test 02/09/2019 [facility] Lactic Acid 4.9 mmol/L High 0.5-2.0 3 finding [address] [place] [address] [phone] Troponin-I (TnI) 0.00 ng/mL <0.04 4 Comp Metabolic Panel 02/09/2019 [facility] Sodium 144 mmol/L N 135-145 [address] [place] [address] [phone] Potassium 3.6 mmol/L N 3.5-5.0 Chloride 105 mmol/L N 101-111 Co2 Carbon Dioxide 22 mmol/L N 22-32 Anion Gap 17 mmol/L High 2-11 Glucose 109 mg/dL High 70-100 Blood Urea Nitrogen 10 mg/dL N 6-24 Creatinine 1.04 mg/dL N 0.67-1.17 BUN/Creatinine Ratio 9.6 N 8-20 Calcium 10.3 mg/dL N 8.6-10.3 Total Protein 8.2 g/dL N 6.4-8.9 Albumin 5.3 g/dL High 3.2-5.2 Globulin 2.9 g/dL N 2-4 Albumin/Globulin Ratio 1.8 N 1-3 Total Bilirubin 0.70 mg/dL N 0.2-1.0 Alkaline Phosphatase 64 U/L N 34-104 Alt 36 U/L N 7-52 Ast 43 U/L High 13-39 Egfr Non- 85.7 >60 Egfr 103.7 >60 5 CBC Auto Diff 02/01/2019 [facility] White Blood 6.8 10^3/uL N 3.5-10.[address] [place] [address] [phone] Red Blood Count 4.56 10^6/uL N 4.18-5.48 Hemoglobin 15.4 g/dL N 14.0-18.0 Hematocrit 44 % N 36-46 Mean Corpuscular Volume 96 fL High 80-94 Mean Corpuscular Hemoglobin 34 pg High 27-31 Mean Corpuscular HGB Conc 35 g/dL N 31-36 Red Cell Distribution Width 13 % N 10.5-15 Platelet Count 170 10^3/uL N 150-450 Mean Platelet Volume 8.4 fL N 7.4-10.4 Abs Neutrophils 5.5 10^3/uL N 1.5-7.7 Abs Lymphocytes 0.8 10^3/uL Low 1.0-4.8 Abs Monocytes 0.4 10^3/uL N 0-0.8 Abs Eosinophils 0 10^3/uL N 0-0.6 Abs Basophils 0 10^3/uL N 0-0.2 Abs Nucleated RBC 0 10^3/uL Granulocyte % 80.9 % Lymphocyte % 12.1 % Monocyte % 6.3 % Eosinophil % 0.3 % Basophil % 0.4 % Nucleated Red Blood Cells % 0 Laboratory test 02/01/2019 [facility] Troponin-I (TnI) 0.03 ng/ mL <0.04 [address] [place] [address] [phone] B-Type Natriuretic Peptide BNP 6 pg/mL <=100 Comp Metabolic Panel 02/01/2019 [facility] Sodium 141 mmol/L N 135-[address] [place] [address] [phone] Potassium 3.9 mmol/L N 3.5-5.0 Chloride 106 mmol/L N 101-111 Co2 Carbon Dioxide 28 mmol/L N 22-32 Anion Gap 7 mmol/L N 2-11 Glucose 104 mg/dL High 70-100 Blood Urea Nitrogen 16 mg/dL N 6-24 Creatinine 1.01 mg/dL N 0.67-1.17 BUN/Creatinine Ratio 15.8 N 8-20 Calcium 9.7 mg/dL N 8.6-10.3 Total Protein 7.3 g/dL N 6.4-8.9 Albumin 4.8 g/dL N 3.2-5.2 Globulin 2.5 g/dL N 2-4 Albumin/Globulin Ratio 1.9 N 1-3 Total Bilirubin 0.90 mg/dL N 0.2-1.0 Alkaline Phosphatase 48 U/L N 34-104 Alt 32 U/L N 7-52 Ast 31 U/L N 13-39 Egfr Non- 88.6 >60 Egfr 107.2 >60 7 Laboratory test 02/01/2019 [facility] Partial 27.6 seconds N 26.0-36.[address] [address] PTT [phone] D Dimer Quantitative < 200 ng/mL N Less Than 230 8 Lactic Acid 1.7 mmol/L N 0.5-2.0 9 Inr/Protime 02/01/2019 [facility] Inr 0.91 N 0.82-1.[address] [place] [address] [phone] CBC Auto Diff 01/27/2019 [facility] White Blood 3.7 10^3/uL N 3.5-10.[address] [place] [address] [phone] Red Blood Count 4.86 10^6/uL N 4.18-5.48 Hemoglobin 16.0 g/dL N 14.0-18.0 Hematocrit 47 % High 36-46 Mean Corpuscular Volume 96 fL High 80-94 Mean Corpuscular Hemoglobin 33 pg High 27-31 Mean Corpuscular HGB Conc 34 g/dL N 31-36 Red Cell Distribution Width 14 % N 10.5-15 Platelet Count 189 10^3/uL N 150-450 Mean Platelet Volume 8.9 fL N 7.4-10.4 Abs Neutrophils 2.2 10^3/uL N 1.5-7.7 Abs Lymphocytes 1.0 10^3/uL N 1.0-4.8 Abs Monocytes 0.4 10^3/uL N 0-0.8 Abs Eosinophils 0 10^3/uL N 0-0.6 Abs Basophils 0 10^3/uL N 0-0.2 Abs Nucleated RBC 0 10^3/uL Granulocyte % 60.3 % Lymphocyte % 27.9 % Monocyte % 10.9 % Eosinophil % 0.5 % Basophil % 0.4 % Nucleated Red Blood Cells % 0 Comp Metabolic Panel 01/27/2019 [facility] Sodium 139 mmol/L N 135-[address] [place] [address] [phone] Potassium 4.2 mmol/L N 3.5-5.0 Chloride 101 mmol/L N 101-111 Co2 Carbon Dioxide 28 mmol/L N 22-32 Anion Gap 10 mmol/L N 2-11 Glucose 88 mg/dL N 70-100 Blood Urea Nitrogen 18 mg/dL N 6-24 Creatinine 0.97 mg/dL N 0.67-1.17 BUN/Creatinine Ratio 18.6 N 8-20 Calcium 10.0 mg/dL N 8.6-10.3 Total Protein 7.0 g/dL N 6.4-8.9 Albumin 4.9 g/dL N 3.2-5.2 Globulin 2.1 g/dL N 2-4 Albumin/Globulin Ratio 2.3 N 1-3 Total Bilirubin 2.70 mg/dL High 0.2-1.0 Alkaline Phosphatase 57 U/L N 34-104 Alt 34 U/L N 7-52 Ast 39 U/L N 13-39 Egfr Non- 92.8 >60 Egfr 112.3 >60 11 CBC Auto Diff 03/21/2018 [facility] White Blood 3.9 10^3/uL N 3.5-10.[address] [place] [address] [phone] Red Blood Count 4.80 10^6/uL N 4.0-5.4 [...] Cells % 0.2 Comp Metabolic Panel 03/21/2018 [facility] Sodium 141 mmol/L N 139-[address] [place] [address] [phone] Potassium 4.1 mmol/L N 3.5-5.0 Chloride 104 [...] >60 Egfr 105.2 >60 12 Vitamin B12 And 03/21/2018 [facility] Vitamin B12 323 pg/mL N 180-914 13 Folate Serum [address] [place] [address] [phone] Folic Acid (Folate) > 20.00 ng/mL >3.99 14 Laboratory test 03/21/2018 [facility] Vitamin D 22.6 ng/mL N 20-50 [address] Total 25(Oh) [place] [address] [phone] TSH (Thyroid Stim Horm) 4.35 mcIU/mL N 0.34-5.60 16 Lipid Profile 03/21/2018 [facility] Triglycerides 52 mg/dL 17 (Trig/Chol/HDL) [address] [place] [address] [phone] Cholesterol 145 mg/dL 18 HDL Cholesterol 59.8 mg/dL 19 LDL Cholesterol 75 mg/dL 20 Basic Metabolic Panel 03/01/2017 [facility] Sodium 138 mmol/L N 133-[address] [place] [address] [phone] Potassium 3.6 mmol/L N 3.5-5.0 Chloride 102 mmol/L N 101-111 Co2 Carbon Dioxide 27 mmol/L N 22-32 Anion Gap 9 mmol/L N 2-11 Glucose 154 mg/dL High 70-100 Blood Urea Nitrogen 13 mg/dL N 6-24 Creatinine 1.03 mg/dL N 0.67-1.17 BUN/Creatinine Ratio 12.6 N 8-20 Calcium 9.4 mg/dL N 8.6-10.3 Egfr Non- 88.0 N >60 Egfr 113.2 N >60 21 CBC Auto Diff 01/29/2017 [facility] White Blood 5.3 10^3/uL N 3.5-10.[address] [address] [phone] Red Blood Count 4.66 10^6/uL N 4.0-5.4 [...] % 0.1 N Comp Metabolic Panel 01/29/2017 [facility] Sodium 139 mmol/L N 133-145 [address] [place] [address] [phone] Potassium 3.9 mmol/L N 3.5-5.0 Chloride 104 [...] 71.0 N >60 Egfr 91.3 N >60 22 Laboratory test finding 01/29/2017 [facility] LDH 102 U/L Low 140-271 [address] [place] [address] [phone] 1 [id number] 2 Because ethnic data is not always [...] dialysis) 3 Critical Result LACT:4.9 Called to [id number] at: 19:58:33 by:[id number] Read back by:[id number] [facility] Severe Sepsis and Septic Shock Management Bundle Measure requires all lactic acids initially measuring >2.0 mmol/L be repeated. 4 Troponin-I testing on Plasma Separator Tubes (PST) has a known false positive rate of 0.20-0.40%. All positive troponins reflex immediately to secondary confirmatory testing. Using the [employer] DxI 800 Access Immunoassay systems, the 99th [...] 5 Kidney failure <15 (or dialysis) 6 Troponin-I testing on Plasma Separator Tubes (PST) has a known false positive rate of 0.20-0.40%. All positive troponins reflex immediately to secondary confirmatory testing. Using the [employer] DxI 800 Access Immunoassay systems, the 99th percentile upper reference limit was demonstrated to be < 0.03 ng/mL. 7 Because ethnic data is not always readily [...] 15-29 5 Kidney failure <15 (or dialysis) 8 Please note: The following may produce a false positive D Dimer test: - Rheumatoid factor greater than 60 IU/ml - Plasma hemoglobin greater than 0.05 gm/dl - Bilirubin greater than 50 mg/dl - Lipids greater than 1000 mg/dl - FDP greater than 20 ug/ml 9 NCS Severe Sepsis and Septic Shock Management Bundle Measure requires all lactic acids initially measuring >2.0 mmol/L be repeated. 10 Standard intensity warfarin therapeutic range: 2.0-3.0 High intensity warfarin therapeutic range: 2.5-3.5 11 Because ethnic data is not always [...] (or dialysis) Procedures Date Code Description Status 04/24/2019 47784 EKG Tracing & Interpretation Completed 03/22/2019 80041 ECHO Transthorasic Realtime 2D W Doppler & Color Flow Hosp Completed 06/22/2014 32079 Diffusing Capacity Completed 06/22/2014 98642 Spirometry Incl Graphic Record Completed 06/22/2014 42543 ECHO Transthorasic Realtime 2D W Doppler & Color Flow Hosp Completed Encounters Type Date Location Provider Dx Diagnosis Office Visit 03/09/2019 [facility] Internal Deepthi Banuelos MD F41.9 Anxiety disorder, 10:00a Medicine - [facility] unspecified G47.00 Insomnia, unspecified Office Visit 01/27/2019 9:20a Bassam Banuelos F41.9 Anxiety disorder, Medicine - Elder COMER unspecified C81.70 Other Hodgkin lymphoma, unspecified site G47.00 Insomnia, unspecified Office Visit 01/06/2019 [facility] Dermatology Ramana Moreira, 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 Office Visit 12/27/2018 [facility] Jennifer Banuelos 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 male genital organs Z23 Encounter for immunization Office Visit 05/16/2018 8:00a [facility] Internal Lane Woo, F41.0 Panic disorder Medicine - M.DChristina [episodic Suite R paroxysmal anxiety] Office Visit 03/24/2018 3:00p [facility] Internal [address] Woo, R53.83 Other fatigue Medicine - M.DChristina Suite R Office Visit 02/10/2018 3:20p [facility] Internal Lane Woo, Z00.01 Encounter for Medicine - M.DChristina general adult Suite R medical exam w abnormal findings R53.83 Other fatigue R19.4 Change in bowel habit C81.70 Other Hodgkin lymphoma, unspecified site Z13.220 Encounter for screening for lipoid disorders F17.210 Nicotine dependence, cigarettes, uncomplicated Z00.00 Encntr for general adult medical exam w/o abnormal findings Office Visit 04/01/2011 Neurosurgery Carlton Wolf 722.10 Intervertebral Disc 2:15p [facility] Clementine Morales 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
--- OUTSIDE RECORDS SUMMARY | 2019-05-18 15:37 | XMS REPORT | Continuity of Care Document ---
:1990 External Reference #:[id number] Author Name Bella Swansone Care Team Providers Name Role Phone Deepthi Banuelos M.D. Primary Care Physician Unavailable Payers Date Identification Numbers Payment Provider Subscriber Effective: 2010 Policy Number: [id number] [facility] Tena M Claudio Expires: 2017 Group Number: [id number] [address] PayID: [id number] [place] [address] Policy Number: [id number] Jim Carrasco Group Number: [id number] [address] Group Name: Medicaid Tan[place] [address] PayID: [id number] Problems Active Problems Provider Date Other Hodgkin [...] CPT Code Status Date Vaccine Lot # [id number] Given 06/28/2018 Influenza Virus Vaccine, Quadrivalent, Split, [...] Test Result H/L Range Note Order 04/24/2019 [employer] In-House EKG <pending> Urinalysis Profile 04/24/2019 [facility] Urine Color Yellow [address] [place] [address] [phone] Urine Appearance Clear Urine Specific [place] 1.012 Normal 1.010-1.030 Urine pH 7.0 Normal 5-9 Urine Urobilinogen Negative Negative Urine Ketones Negative Negative Urine Protein Negative Negative Urine Leukocytes Negative Negative Urine Blood Negative Negative Urine Nitrite Negative Negative Urine Bilirubin Negative Negative Urine Glucose Negative Negative Laboratory 04/24/2019 [facility] Free T4 (Free 0.76 Normal 0.61-1.12 test finding [address] Thyroxine) ng/[place] [address] [phone] T3 Free 3.60 pg/mL Normal 2.5-3.9 TSH (Thyroid Stim Horm) 1.65 mcIU/mL Normal 0.34-5.60 Erythrocyte Sed Rate 0 mm/Hr Normal 0-14 CBC Auto 04/24/2019 [facility] White Blood 4.4 10^3/uL Normal 3.5-10.[address] [place] [address] [phone] Red Blood Count 4.86 10^6/uL Normal 4.18-5.48 [...] Blood Cells % 0.1 Comp Metabolic 04/24/2019 [facility] Sodium 139 mmol/L Normal 135-[address] [place] [address] [phone] Potassium 4.1 mmol/L Normal 3.5-5.0 Chloride 102 [...] Egfr 106.0 >60 2 Urinalysis Profile 04/24/2019 [facility] Urine Color Colorless [address] [place] [address] [phone] Urine Appearance Clear Urine Specific [place] 1.003 Low 1.010-1.030 Urine pH 8.0 Normal 5-9 Urine Urobilinogen Negative Negative Urine Ketones Negative Negative Urine Protein Negative Negative Urine Leukocytes Negative Negative Urine Blood Negative Negative Urine Nitrite Negative Negative Urine Bilirubin Negative Negative Urine Glucose Negative Negative Laboratory test 04/24/2019 [facility] Magnesium 2.2 mg/dL Normal 1.9-2.7 finding [address] [place] [address] [phone] Laboratory test 02/09/2019 [facility] Lipase 36 U/L Normal 11.0-82.0 finding [address] [place] [address] [phone] C Reactive Protein 11.01 mg/L High <8.01 TSH (Thyroid Stim Horm) 0.87 mcIU/mL Normal 0.34-5.60 CBC Auto 02/09/2019 [facility] White Blood 5.7 10^3/uL Normal 3.5-10.8 Diff 101 [facility] [place] [address] [phone] Red Blood Count 4.97 10^6/uL Normal 4.18-5.48 [...] Red Blood Cells % 0.0 Laboratory 02/09/2019 [facility] Lactic 4.9 mmol/L Critical 0.5-2.0 3 test finding [address] [place] [address] [phone] Troponin-I (TnI) 0.00 ng/mL <0.04 4 Comp Metabolic 02/09/2019 [facility] Sodium 144 mmol/L Normal 135-[address] [place] [address] [phone] Potassium 3.6 mmol/L Normal 3.5-5.0 Chloride 105 [...] >60 Egfr 103.7 >60 5 CBC Auto 02/01/2019 [facility] White Blood 6.8 10^3/uL Normal 3.5-10.[address] [place] [address] [phone] Red Blood Count 4.56 10^6/uL Normal 4.18-5.48 [...] Blood Cells % 0 Laboratory test 02/01/2019 [facility] Troponin-I (TnI) 0.03 ng/ mL <0.04 [address] [place] [address] [phone] B-Type Natriuretic Peptide BNP 6 pg/mL <=100 Comp Metabolic 02/01/2019 [facility] Sodium 141 mmol/L Normal 135-[address] [place] [address] [phone] Potassium 3.9 mmol/L Normal 3.5-5.0 Chloride 106 [...] Egfr 107.2 >60 7 Laboratory test 02/01/2019 [facility] Partial 27.6 Normal 26.0 -36.[address] [address] Time PTT [phone] D Dimer Quantitative < 200 ng/mL Normal Less Than 230 8 Lactic Acid 1.7 mmol/L Normal 0.5-2.0 9 Inr/Protime 02/01/2019 [facility] Inr 0.91 Normal 0.82-1.[address] [place] [address] [phone] CBC Auto Diff 01/27/2019 [facility] White Blood 3.7 Normal 3.5 -10.[address] Count 10^3/[place] [address] [phone] Red Blood Count 4.86 10^6/uL Normal 4.18-5.48 [...] Red Blood Cells % 0 Comp Metabolic 01/27/2019 [facility] Sodium 139 mmol/L Normal 135-[address] [place] [address] [phone] Potassium 4.2 mmol/L Normal 3.5-5.0 Chloride 101 [...] >60 Egfr 112.3 >60 11 CBC Auto 03/21/2018 [facility] White Blood 3.9 10^3/uL Normal 3.5-10.[address] [place] [address] [phone] Red Blood Count 4.80 10^6/uL Normal 4.0-5.4 [...] Blood Cells % 0.2 Comp Metabolic 03/21/2018 [facility] Sodium 141 mmol/L Normal 139-[address] [place] [address] [phone] Potassium 4.1 mmol/L Normal 3.5-5.0 Chloride 104 [...] Egfr 105.2 >60 12 Vitamin B12 03/21/2018 [facility] Vitamin B12 323 pg/mL Normal 180-914 13 [address] Folate [address] [place] [address] [phone] Folic Acid (Folate) > 20.00 ng/mL >3.99 14 Laboratory test 03/21/2018 [facility] Vitamin D 22.6 ng/mL Normal 20-50 [address] Total 25(Oh) [place] [address] [phone] TSH (Thyroid Stim Horm) 4.35 mcIU/mL Normal 0.34-5.60 16 Lipid Profile 03/21/2018 [facility] Triglycerides 52 mg/dL 17 (Trig/Chol/HDL) [address] [place] [address] [phone] Cholesterol 145 mg/dL 18 HDL Cholesterol 59.8 mg/dL 19 LDL Cholesterol 75 mg/dL 20 Basic Metabolic 03/01/2017 [facility] Sodium 138 mmol/L Normal 133-[address] [place] [address] [phone] Potassium 3.6 mmol/L Normal 3.5-5.0 Chloride 102 mmol/L Normal 101-111 Co2 Carbon Dioxide 27 mmol/L Normal 22-32 Anion Gap 9 mmol/L Normal 2-11 Glucose 154 mg/dL High 70-100 Blood Urea Nitrogen 13 mg/dL Normal 6-24 Creatinine 1.03 mg/dL Normal 0.67-1.17 BUN/Creatinine Ratio 12.6 Normal 8-20 Calcium 9.4 mg/dL Normal 8.6-10.3 Egfr Non- 88.0 Normal >60 Egfr 113.2 Normal >60 21 CBC Auto 01/29/2017 [facility] White Blood 5.3 10^3/uL Normal 3.5-10.[address] [place] [address] [phone] Red Blood Count 4.66 10^6/uL Normal 4.0-5.4 [...] Cells % 0.1 Normal Comp Metabolic 01/29/2017 [facility] Sodium 139 mmol/L Normal 133-145 Panel [address] [place] [address] [phone] Potassium 3.9 mmol/L Normal 3.5-5.0 Chloride 104 [...] Normal >60 22 Laboratory test finding 01/29/2017 [facility] LDH 102 U/L Low 140-271 [address] [place] [address] [phone] 1 [id number] 2 Because ethnic data is not always [...] dialysis) 3 Critical Result LACT:4.9 Called to [id number] at: 19:58:33 by:[id number] Read back by:[id number] [facility] Severe Sepsis and Septic Shock Management Bundle Measure requires all lactic acids initially measuring >2.0 mmol/L be repeated. 4 Troponin-I testing on Plasma Separator Tubes (PST) has a known false positive rate of 0.20-0.40%. All positive troponins reflex immediately to secondary confirmatory testing. Using the [employer] DxI 800 Access Immunoassay systems, the 99th [...] immediately to secondary confirmatory testing. Using the [employer] DxI 800 Access Immunoassay systems, the 99th [...] - FDP greater than 20 ug/ml 9 MSS Severe Sepsis and Septic Shock Management Bundle [...] dialysis) Procedures Date Code Description Status 04/24/2019 79257 EKG Tracing & Interpretation Completed 03/22/2019 50613 ECHO Transthorasic Realtime 2D W Doppler & Color Flow Hosp Completed 06/22/2014 68785 Diffusing Capacity Completed 06/22/2014 77225 Spirometry Incl Graphic Record Completed 06/22/2014 78568 ECHO Transthorasic Realtime 2D W Doppler & Color Flow Hosp Completed Encounters Type Date Location Provider Dx Diagnosis Office Visit 03/09/2019 [facility] Internal Deepthi Banuelos MD F41.9 Anxiety disorder, 10:00a Medicine - Ccmob unspecified G47.00 Insomnia, unspecified Office Visit 01/27/2019 9:20a Bassam Banuelos F41.9 Anxiety disorder, Medicine - Elder COMER unspecified C81.70 Other Hodgkin lymphoma, unspecified site G47.00 Insomnia, unspecified Office Visit 01/06/2019 [facility] Dermatology Ramana Moreira, 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 Office Visit 12/27/2018 [facility] Jennifer Banuelos D48.5 Neoplasm of uncertain 9:40a Medicine - Suite behavior of skin R R03.0 Elevated blood-pressure reading, w/o diagnosis of htn F17.210 Nicotine dependence, cigarettes, uncomplicated F41.9 Anxiety disorder, unspecified L98.9 Disorder of the skin and subcutaneous tissue, unspecified Office Visit 09/20/2018 10:00a Bassam Banuelos F41.9 Anxiety disorder, Medicine - unspecified Suite R Office Visit 06/28/2018 7:40a [facility] Jennifer Sherman N50.89 Other specified Medicine - [place], disorders of the Suite R M.D. male genital organs Z23 Encounter for immunization Office Visit 05/16/2018 8:00a [facility] Internal Lane Woo, F41.0 Panic disorder Medicine - M.DChristina [episodic Suite R paroxysmal anxiety] Office Visit 03/24/2018 3:00p [facility] Internal [address] Woo, R53.83 Other fatigue Medicine - M.DChristina Suite R Office Visit 02/10/2018 3:20p [facility] Internal Lane Woo, Z00.01 Encounter for Medicine - M.Katina general adult Suite R medical exam w abnormal findings R53.83 Other fatigue R19.4 Change in bowel habit C81.70 Other Hodgkin lymphoma, unspecified site Z13.220 Encounter for screening for lipoid disorders F17.210 Nicotine dependence, cigarettes, uncomplicated Z00.00 Encntr for general adult medical exam w/o abnormal findings Office Visit 04/01/2011 Neurosurgery Carlton Wolf 722.10 Intervertebral Disc 2:15p Services [facility] Clementine Morales 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
--- OUTSIDE RECORDS SUMMARY | 2019-05-18 15:37 | XMS REPORT | Continuity of Care Document ---
:1991 External Reference #:[id number] Author Name Bella Swansone Care Team Providers Name Role Phone Deepthi Banuelos M.D. Primary Care Physician Unavailable Payers Date Identification Numbers Payment Provider Subscriber Effective: 2010 Policy Number: [id number] [facility] Tena M Claudio Expires: 2017 Group Number: [id number] [address] PayID: [id number] [place] [address] Policy Number: [id number] Jim Carrasco Group Number: [id number] [address] Group Name: Medicaid [place]f/[place] [address] PayID: [id number] Problems Active Problems Provider Date Other Hodgkin [...] CPT Code Status Date Vaccine Lot # [id number] Given 06/28/2018 Influenza Virus Vaccine, Quadrivalent, Split, [...] Test Result H/L Range Note Order 04/24/2019 [employer] Agent In-House EKG <pending> Urinalysis Profile 04/24/2019 [facility] Urine Color Yellow [address] [place] [address] [phone] Urine Appearance Clear Urine Specific [place] 1.012 Normal 1.010-1.030 Urine pH 7.0 Normal 5-9 Urine Urobilinogen Negative Negative Urine Ketones Negative Negative Urine Protein Negative Negative Urine Leukocytes Negative Negative Urine Blood Negative Negative Urine Nitrite Negative Negative Urine Bilirubin Negative Negative Urine Glucose Negative Negative Laboratory 04/24/2019 [facility] Free T4 (Free 0.76 Normal 0.61-1.12 test finding [address] Thyroxine) ng/[place] [address] [phone] T3 Free 3.60 pg/mL Normal 2.5-3.9 TSH (Thyroid Stim Horm) 1.65 mcIU/mL Normal 0.34-5.60 Erythrocyte Sed Rate 0 mm/Hr Normal 0-14 CBC Auto 04/24/2019 [facility] White Blood 4.4 10^3/uL Normal 3.5-10.[address] [place] [address] [phone] Red Blood Count 4.86 10^6/uL Normal 4.18-5.48 [...] Blood Cells % 0.1 Comp Metabolic 04/24/2019 [facility] Sodium 139 mmol/L Normal 135-[address] [place] [address] [phone] Potassium 4.1 mmol/L Normal 3.5-5.0 Chloride 102 [...] Egfr 106.0 >60 2 Urinalysis Profile 04/24/2019 [facility] Urine Color Colorless [address] [place] [address] [phone] Urine Appearance Clear Urine Specific [place] 1.003 Low 1.010-1.030 Urine pH 8.0 Normal 5-9 Urine Urobilinogen Negative Negative Urine Ketones Negative Negative Urine Protein Negative Negative Urine Leukocytes Negative Negative Urine Blood Negative Negative Urine Nitrite Negative Negative Urine Bilirubin Negative Negative Urine Glucose Negative Negative Laboratory test 04/24/2019 [facility] Magnesium 2.2 mg/dL Normal 1.9-2.7 finding [address] [place] [address] [phone] Laboratory test 02/09/2019 [facility] Lipase 36 U/L Normal 11.0-82.0 finding [address] [place] [address] [phone] C Reactive Protein 11.01 mg/L High <8.01 TSH (Thyroid Stim Horm) 0.87 mcIU/mL Normal 0.34-5.60 CBC Auto 02/09/2019 [facility] White Blood 5.7 10^3/uL Normal 3.5-10.8 Diff 101 [facility] [place] [address] [phone] Red Blood Count 4.97 10^6/uL Normal 4.18-5.48 [...] Red Blood Cells % 0.0 Laboratory 02/09/2019 [facility] Lactic 4.9 mmol/L Critical 0.5-2.0 3 test finding [address] [place] [place] [address] [phone] Troponin-I (TnI) 0.00 ng/mL <0.04 4 Comp Metabolic 02/09/2019 [facility] Sodium 144 mmol/L Normal 135-[address] [place] [address] [phone] Potassium 3.6 mmol/L Normal 3.5-5.0 Chloride 105 [...] Egfr 103.7 >60 5 CBC Auto 02/01/2019 [facility] White Blood 6.8 10^3/uL Normal 3.5-10.[address] [place] [address] [phone] Red Blood Count 4.56 10^6/uL Normal 4.18-5.48 [...] Blood Cells % 0 Laboratory test 02/01/2019 [facility] Troponin-I (TnI) 0.03 ng/ mL <0.04 [address] [place] [address] [phone] B-Type Natriuretic Peptide BNP 6 pg/mL <=100 Comp Metabolic 02/01/2019 [facility] Sodium 141 mmol/L Normal 135-[address] [place] [address] [phone] Potassium 3.9 mmol/L Normal 3.5-5.0 Chloride 106 [...] Egfr 107.2 >60 7 Laboratory test 02/01/2019 [facility] Partial 27.6 Normal 26.0 -36.[address] [place] [address] Time PTT [phone] D Dimer Quantitative < 200 ng/mL Normal Less Than 230 8 Lactic Acid 1.7 mmol/L Normal 0.5-2.0 9 Inr/Protime 02/01/2019 [facility] Inr 0.91 Normal 0.82-1.[address] [place] [address] [phone] CBC Auto Diff 01/27/2019 [facility] White Blood 3.7 Normal 3.5 -10.[address] Count 10^3/[place] [address] [phone] Red Blood Count 4.86 10^6/uL Normal 4.18-5.48 [...] Blood Cells % 0 Comp Metabolic 01/27/2019 [facility] Sodium 139 mmol/L Normal 135-[address] [place] [address] [phone] Potassium 4.2 mmol/L Normal 3.5-5.0 Chloride 101 [...] Egfr 112.3 >60 11 CBC Auto 03/21/2018 [facility] White Blood 3.9 10^3/uL Normal 3.5-10.[address] [place] [address] [phone] Red Blood Count 4.80 10^6/uL Normal 4.0-5.4 [...] Blood Cells % 0.2 Comp Metabolic 03/21/2018 [facility] Sodium 141 mmol/L Normal 139-[address] [place] [address] [phone] Potassium 4.1 mmol/L Normal 3.5-5.0 Chloride 104 [...] Egfr 105.2 >60 12 Vitamin B12 03/21/2018 [facility] Vitamin B12 323 pg/mL Normal 180-914 13 And Folate [address] [place] [address] [phone] Folic Acid (Folate) > 20.00 ng/mL >3.99 14 Laboratory test 03/21/2018 [facility] Vitamin D 22.6 ng/mL Normal 20-50 [address] Total 25(Oh) [place] [address] [phone] TSH (Thyroid Stim Horm) 4.35 mcIU/mL Normal 0.34-5.60 16 Lipid Profile 03/21/2018 [facility] Triglycerides 52 mg/dL 17 (Trig/Chol/HDL) [address] [place] [address] [phone] Cholesterol 145 mg/dL 18 HDL Cholesterol 59.8 mg/dL 19 LDL Cholesterol 75 mg/dL 20 Basic Metabolic 03/01/2017 [facility] Sodium 138 mmol/L Normal 133-[address] [place] [address] [phone] Potassium 3.6 mmol/L Normal 3.5-5.0 Chloride 102 mmol/L Normal 101-111 Co2 Carbon Dioxide 27 mmol/L Normal 22-32 Anion Gap 9 mmol/L Normal 2-11 Glucose 154 mg/dL High 70-100 Blood Urea Nitrogen 13 mg/dL Normal 6-24 Creatinine 1.03 mg/dL Normal 0.67-1.17 BUN/Creatinine Ratio 12.6 Normal 8-20 Calcium 9.4 mg/dL Normal 8.6-10.3 Egfr Non- 88.0 Normal >60 Egfr 113.2 Normal >60 21 CBC Auto 01/29/2017 [facility] White Blood 5.3 10^3/uL Normal 3.5-10.[address] [place] [address] [phone] Red Blood Count 4.66 10^6/uL Normal 4.0-5.4 [...] Cells % 0.1 Normal Comp Metabolic 01/29/2017 [facility] Sodium 139 mmol/L Normal 133-145 Panel [address] [place] [address] [phone] Potassium 3.9 mmol/L Normal 3.5-5.0 Chloride 104 [...] Normal >60 22 Laboratory test finding 01/29/2017 [facility] LDH 102 U/L Low 140-271 [address] [place] [address] [phone] 1 [id number] 2 Because ethnic data is not always [...] dialysis) 3 Critical Result LACT:4.9 Called to [id number] at: 19:58:33 by:[id number] Read back by:[id number] [facility] Severe Sepsis and Septic Shock Management Bundle Measure requires all lactic acids initially measuring >2.0 mmol/L be repeated. 4 Troponin-I testing on Plasma Separator Tubes (PST) has a known false positive rate of 0.20-0.40%. All positive troponins reflex immediately to secondary confirmatory testing. Using the [employer] DxI 800 Access Immunoassay systems, the 99th [...] immediately to secondary confirmatory testing. Using the [employer] DxI 800 Access Immunoassay systems, the 99th [...] - FDP greater than 20 ug/ml 9 MTS Severe Sepsis and Septic Shock Management Bundle [...] dialysis) Procedures Date Code Description Status 04/24/2019 26692 EKG Tracing & Interpretation Completed 03/22/2019 47366 ECHO Transthorasic Realtime 2D W Doppler & Color Flow Hosp Completed 06/22/2014 95355 Diffusing Capacity Completed 06/22/2014 52195 Spirometry Incl Graphic Record Completed 06/22/2014 30539 ECHO Transthorasic Realtime 2D W Doppler & Color Flow Hosp Completed Encounters Type Date Location Provider Dx Diagnosis Office Visit 03/09/2019 [facility] Internal Deepthi Banuelos MD F41.9 Anxiety disorder, 10:00a Medicine - Ccmob unspecified G47.00 Insomnia, unspecified Office Visit 01/27/2019 9:20a Bassam Banuelos F41.9 Anxiety disorder, Medicine - Elder COMER unspecified C81.70 Other Hodgkin lymphoma, unspecified site G47.00 Insomnia, unspecified Office Visit 01/06/2019 [facility] Dermatology Ramana Moriera, 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 Office Visit 12/27/2018 [facility] Jennifer Banuelos D48.5 Neoplasm of uncertain 9:40a Medicine - Suite behavior of skin R R03.0 Elevated blood-pressure reading, w/o diagnosis of htn F17.210 Nicotine dependence, cigarettes, uncomplicated F41.9 Anxiety disorder, unspecified L98.9 Disorder of the skin and subcutaneous tissue, unspecified Office Visit 09/20/2018 10:00a Bassam Banuelos F41.9 Anxiety disorder, Medicine - unspecified Suite R Office Visit 06/28/2018 7:40a [facility] Jennifer Sherman N50.89 Other specified Medicine - [place], disorders of the Suite R M.D. 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
--- OUTSIDE RECORDS SUMMARY | 2019-05-18 15:37 | XMS REPORT | Continuity of Care Document ---
:1990 External Reference #:[id number] Author Name Bella Swansone Care Team Providers Name Role Phone Deepthi Banuelos M.D. Primary Care Physician Unavailable Payers Date Identification Numbers Payment Provider Subscriber Effective: 2010 Policy Number: [id number] [facility] T[facility] M Claudio Expires: 2017 Group Number: [id number] [address] PayID: [id number] [place] [address] Policy Number: [id number] Jim Carrasco Group Number: [id number] [address] Group Name: Medicaid Tanf/[place] [address] PayID: [id number] Problems Active Problems Provider Date Other Hodgkin [...] CPT Code Status Date Vaccine Lot # [id number] Given 06/28/2018 Influenza Virus Vaccine, Quadrivalent, Split, [...] Test Result H/L Range Note Order 04/24/2019 [place] [facility] In-House EKG <pending> Urinalysis Profile 04/24/2019 [facility] Urine Color Yellow [address] [place] [address] [phone] Urine Appearance Clear Urine Specific [place] 1.012 Normal 1.010-1.030 Urine pH 7.0 Normal 5-9 Urine Urobilinogen Negative Negative Urine Ketones Negative Negative Urine Protein Negative Negative Urine Leukocytes Negative Negative Urine Blood Negative Negative Urine Nitrite Negative Negative Urine Bilirubin Negative Negative Urine Glucose Negative Negative Laboratory 04/24/2019 [facility] Free T4 (Free 0.76 Normal 0.61-1.12 test finding [address] Thyroxine) ng/[place] [address] [phone] T3 Free 3.60 pg/mL Normal 2.5-3.9 TSH (Thyroid Stim Horm) 1.65 mcIU/mL Normal 0.34-5.60 Erythrocyte Sed Rate 0 mm/Hr Normal 0-14 CBC Auto 04/24/2019 [facility] White Blood 4.4 10^3/uL Normal 3.5-10.[address] [place] [address] [phone] Red Blood Count 4.86 10^6/uL Normal 4.18-5.48 [...] Blood Cells % 0.1 Comp Metabolic 04/24/2019 [facility] Sodium 139 mmol/L Normal 135-[address] [place] [address] [phone] Potassium 4.1 mmol/L Normal 3.5-5.0 Chloride 102 [...] Egfr 106.0 >60 2 Urinalysis Profile 04/24/2019 [facility] Urine Color Colorless [address] [place] [address] [phone] Urine Appearance Clear Urine Specific [place] 1.003 Low 1.010-1.030 Urine pH 8.0 Normal 5-9 Urine Urobilinogen Negative Negative Urine Ketones Negative Negative Urine Protein Negative Negative Urine Leukocytes Negative Negative Urine Blood Negative Negative Urine Nitrite Negative Negative Urine Bilirubin Negative Negative Urine Glucose Negative Negative Laboratory test 04/24/2019 [facility] Magnesium 2.2 mg/dL Normal 1.9-2.7 finding 101 [place] [address] [phone] Laboratory test 02/09/2019 [facility] Lipase 36 U/L Normal 11.0-82.0 finding 101 [place] [address] [phone] C Reactive Protein 11.01 mg/L High <8.01 TSH (Thyroid Stim Horm) 0.87 mcIU/mL Normal 0.34-5.60 CBC Auto 02/09/2019 [facility] White Blood 5.7 10^3/uL Normal 3.5-10.8 Diff 101 [facility] [place] [address] [phone] Red Blood Count 4.97 10^6/uL Normal 4.18-5.48 [...] Red Blood Cells % 0.0 Laboratory 02/09/2019 [facility] Lactic 4.9 mmol/L Critical 0.5-2.0 3 test finding [address] [place] [address] [phone] Troponin-I (TnI) 0.00 ng/mL <0.04 4 Comp Metabolic 02/09/2019 [facility] Sodium 144 mmol/L Normal 135-[address] [place] [address] [phone] Potassium 3.6 mmol/L Normal 3.5-5.0 Chloride 105 [...] Egfr 103.7 >60 5 CBC Auto 02/01/2019 [facility] White Blood 6.8 10^3/uL Normal 3.5-10.[address] [place] [address] [phone] Red Blood Count 4.56 10^6/uL Normal 4.18-5.48 [...] Blood Cells % 0 Laboratory test 02/01/2019 [facility] Troponin-I (TnI) 0.03 ng/ mL <0.04 [address] [place] [address] [phone] B-Type Natriuretic Peptide BNP 6 pg/mL <=100 Comp Metabolic 02/01/2019 [facility] Sodium 141 mmol/L Normal 135-[address] [place] [address] [phone] Potassium 3.9 mmol/L Normal 3.5-5.0 Chloride 106 [...] Egfr 107.2 >60 7 Laboratory test 02/01/2019 [facility] Partial 27.6 Normal 26.0 -36.[address] [address] Time PTT [phone] D Dimer Quantitative < 200 ng/mL Normal Less Than 230 8 Lactic Acid 1.7 mmol/L Normal 0.5-2.0 9 Inr/Protime 02/01/2019 [facility] Inr 0.91 Normal 0.82-1.[address] [place] [address] [phone] CBC Auto Diff 01/27/2019 [facility] White Blood 3.7 Normal 3.5 -10.[address] Count 10^3/[place] [address] [phone] Red Blood Count 4.86 10^6/uL Normal 4.18-5.48 [...] Blood Cells % 0 Comp Metabolic 01/27/2019 [facility] Sodium 139 mmol/L Normal 135-[address] [place] [address] [phone] Potassium 4.2 mmol/L Normal 3.5-5.0 Chloride 101 [...] Egfr 112.3 >60 11 CBC Auto 03/21/2018 [facility] White Blood 3.9 10^3/uL Normal 3.5-10.[address] [place] [address] [phone] Red Blood Count 4.80 10^6/uL Normal 4.0-5.4 [...] Blood Cells % 0.2 Comp Metabolic 03/21/2018 [facility] Sodium 141 mmol/L Normal 139-[address] [place] [address] [phone] Potassium 4.1 mmol/L Normal 3.5-5.0 Chloride 104 [...] Egfr 105.2 >60 12 Vitamin B12 03/21/2018 [facility] Vitamin B12 323 pg/mL Normal 180-914 13 [address] Folate [address] [place] [address] [phone] Folic Acid (Folate) > 20.00 ng/mL >3.99 14 Laboratory test 03/21/2018 [facility] Vitamin D 22.6 ng/mL Normal 20-[address] Total 25(Oh) [place] [address] [phone] TSH (Thyroid Stim Horm) 4.35 mcIU/mL Normal 0.34-5.60 16 Lipid Profile 03/21/2018 [facility] Triglycerides 52 mg/dL 17 (Trig/Chol/HDL) [address] [place] [address] [phone] Cholesterol 145 mg/dL 18 HDL Cholesterol 59.8 mg/dL 19 LDL Cholesterol 75 mg/dL 20 Basic Metabolic 03/01/2017 [facility] Sodium 138 mmol/L Normal 133-[address] [place] [address] [phone] Potassium 3.6 mmol/L Normal 3.5-5.0 Chloride 102 mmol/L Normal 101-111 Co2 Carbon Dioxide 27 mmol/L Normal 22-32 Anion Gap 9 mmol/L Normal 2-11 Glucose 154 mg/dL High 70-100 Blood Urea Nitrogen 13 mg/dL Normal 6-24 Creatinine 1.03 mg/dL Normal 0.67-1.17 BUN/Creatinine Ratio 12.6 Normal 8-20 Calcium 9.4 mg/dL Normal 8.6-10.3 Egfr Non- 88.0 Normal >60 Egfr 113.2 Normal >60 21 CBC Auto 01/29/2017 [facility] White Blood 5.3 10^3/uL Normal 3.5-10.[address] [place] [address] [phone] Red Blood Count 4.66 10^6/uL Normal 4.0-5.4 [...] Cells % 0.1 Normal Comp Metabolic 01/29/2017 [facility] Sodium 139 mmol/L Normal 133-145 Panel [address] [place] [address] [phone] Potassium 3.9 mmol/L Normal 3.5-5.0 Chloride 104 [...] Normal >60 22 Laboratory test finding 01/29/2017 [facility] LDH 102 U/L Low 140-271 [address] [place] [address] [phone] 1 [id number] 2 Because ethnic data is not always [...] dialysis) 3 Critical Result LACT:4.9 Called to [id number] at: 19:58:33 by:[id number] Read back by:[email or web address] [facility] Severe Sepsis and Septic Shock Management Bundle Measure requires all lactic acids initially measuring >2.0 mmol/L be repeated. 4 Troponin-I testing on Plasma Separator Tubes (PST) has a known false positive rate of 0.20-0.40%. All positive troponins reflex immediately to secondary confirmatory testing. Using the I[employer] Connect DxI 800 Access Immunoassay systems, the 99th [...] immediately to secondary confirmatory testing. Using the UnicChargeback DxI 800 Access Immunoassay systems, the 99th [...] - FDP greater than 20 ug/ml 9 SCS Severe Sepsis and Septic Shock Management Bundle [...] dialysis) Procedures Date Code Description Status 04/24/2019 85106 EKG Tracing & Interpretation Completed 03/22/2019 00947 ECHO Transthorasic Realtime 2D W Doppler & Color Flow Hosp Completed 06/22/2014 48287 Diffusing Capacity Completed 06/22/2014 64671 Spirometry Incl Graphic Record Completed 06/22/2014 29622 ECHO Transthorasic Realtime 2D W Doppler & Color Flow Hosp Completed Encounters Type Date Location Provider Dx Diagnosis Office Visit 03/09/2019 [facility] Internal Deepthi Banuelos MD F41.9 Anxiety disorder, 10:00a Medicine - Ccmob unspecified G47.00 Insomnia, unspecified Office Visit 01/27/2019 9:20a Bassam Banuelos F41.9 Anxiety disorder, Medicine - Elder COMER unspecified C81.70 Other Hodgkin lymphoma, unspecified site G47.00 Insomnia, unspecified Office Visit 01/06/2019 [facility] Dermatology Ramana Moreira, 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 Office Visit 12/27/2018 [facility] Jennifer Banuelos D48.5 Neoplasm of uncertain 9:40a Medicine - Suite behavior of skin R R03.0 Elevated blood-pressure reading, w/o diagnosis of htn F17.210 Nicotine dependence, cigarettes, uncomplicated F41.9 Anxiety disorder, unspecified L98.9 Disorder of the skin and subcutaneous tissue, unspecified Office Visit 09/20/2018 10:00a Bassam Banuelos F41.9 Anxiety disorder, Medicine - unspecified Suite R Office Visit 06/28/2018 7:40a [facility] Jennifer Sherman N50.89 Other specified Medicine - Pachearlra, disorders of the Suite R M.D. 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
--- OUTSIDE RECORDS SUMMARY | 2019-05-18 15:38 | XMS REPORT | Continuity of Care Document ---
:1990 External Reference #:[id number] Author Name Yessica Medeiros Care Team Providers Name Role Phone Deepthi Banuelos M.D. Primary Care Physician Unavailable Payers Date Identification Numbers Payment Provider Subscriber Effective: 2010 Policy Number: [id number] [facility] M Frisian Expires: 2017 Group Number: [id number] [address] PayID: [id number] [place] [address] Policy Number: [id number] Jim Carrasco Group Number: [id number] [address] PayID: [id number] [place] [address] Problems Active Problems Provider Date Other Hodgkin [...] (10 or fewer cigarettes/day) Smoking Status Reviewed: 04/24/19 Light tobacco smoker (10 or fewer cigarettes/day) [...] CPT Code Status Date Vaccine Lot # 77768 Given 06/28/2018 Influenza Virus Vaccine, Quadrivalent, Split, [id number] Preservative Free Vital Signs Date Vital Result Comment 04/24/2019 1:43pm Height 67 inches 5'7" Weight [...] Test Result H/L Range Note Order 04/24/2019 [employer] [facility] In-House EKG <pending> CBC Auto Diff 02/09/2019 [facility] White Blood 5.7 10^3/uL N 3.5-10.[address] [place] [address] [phone] Red Blood Count 4.97 10^6/uL N 4.18-5.48 [...] Blood Cells % 0.0 Laboratory test 02/09/2019 [facility] Lactic Acid 4.9 mmol/L High 0.5-2.0 1 finding [address] [place] [address] [phone] Troponin-I (TnI) 0.00 ng/mL <0.04 2 Comp Metabolic Panel 02/09/2019 [facility] Sodium 144 mmol/L N 135-145 [address] [place] [address] [phone] Potassium 3.6 mmol/L N 3.5-5.0 Chloride 105 [...] Egfr Non- 85.7 >60 Egfr 103.7 >60 3 Laboratory test finding 02/09/2019 [facility] Lipase 36 U/L N 11.0-82.[address] [place] [address] [phone] C Reactive Protein 11.01 mg/L High <8.01 TSH (Thyroid Stim Horm) 0.87 mcIU/mL N 0.34-5.60 CBC Auto Diff 02/01/2019 [facility] White Blood 6.8 10^3/uL N 3.5-10.[address] [place] [address] [phone] Red Blood Count 4.56 10^6/uL N 4.18-5.48 [...] Red Blood Cells % 0 Inr/Protime 02/01/2019 [facility] Inr 0.91 N 0.82-1.[address] [place] [address] [phone] Laboratory test 02/01/2019 [facility] Partial 27.6 seconds N 26.0-36.[address] [place] [address] PTT [phone] D Dimer Quantitative < 200 ng/mL N Less Than 230 5 Lactic Acid 1.7 mmol/L N 0.5-2.0 6 Comp Metabolic Panel 02/01/2019 [facility] Sodium 141 mmol/L N 135-145 [address] [place] [address] [phone] Potassium 3.9 mmol/L N 3.5-5.0 Chloride 106 [...] Egfr 107.2 >60 7 Laboratory test 02/01/2019 [facility] Troponin-I (TnI) 0.03 ng/ mL <0.04 8 finding [address] [place] [address] [phone] B-Type Natriuretic Peptide BNP 6 pg/mL <=100 Comp Metabolic Panel 01/27/2019 [facility] Sodium 139 mmol/L N 135-145 [address] [place] [address] [phone] Potassium 4.2 mmol/L N 3.5-5.0 Chloride 101 [...] Egfr Non- 92.8 >60 Egfr 112.3 >60 9 CBC Auto Diff 01/27/2019 [facility] White Blood 3.7 10^3/uL N 3.5-10.[address] [place] [address] [phone] Red Blood Count 4.86 10^6/uL N 4.18-5.48 [...] Blood Cells % 0 Comp Metabolic Panel 03/21/2018 [facility] Sodium 141 mmol/L N 139-[address] [place] [address] [phone] Potassium 4.1 mmol/L N 3.5-5.0 Chloride 104 [...] Egfr Non- 81.8 >60 Egfr 105.2 >60 10 Vitamin B12 And 03/21/2018 [facility] Vitamin B12 323 pg/mL N 180-914 11 Folate Serum [address] [place] [address] [phone] Folic Acid (Folate) > 20.00 ng/mL >3.99 12 Laboratory test 03/21/2018 [facility] Vitamin D 22.6 ng/mL N 20-50 [address] Total 25(Oh) [place] [address] [phone] TSH (Thyroid Stim Horm) 4.35 mcIU/mL N 0.34-5.60 14 Lipid Profile 03/21/2018 [facility] Triglycerides 52 mg/dL 15 (Trig/Chol/HDL) [address] [place] [address] [phone] Cholesterol 145 mg/dL 16 HDL Cholesterol 59.8 mg/dL 17 LDL Cholesterol 75 mg/dL 18 CBC Auto Diff 03/21/2018 [facility] White Blood 3.9 10^3/uL N 3.5-10.[address] [place] [address] [phone] Red Blood Count 4.80 10^6/uL N 4.0-5.4 [...] 0-2 Nucleated Red Blood Cells % 0.2 Basic Metabolic Panel 03/01/2017 [facility] Sodium 138 mmol/L N 133-[address] [place] [address] [phone] Potassium 3.6 mmol/L N 3.5-5.0 Chloride 102 mmol/L N 101-111 Co2 Carbon Dioxide 27 mmol/L N 22-32 Anion Gap 9 mmol/L N 2-11 Glucose 154 mg/dL High 70-100 Blood Urea Nitrogen 13 mg/dL N 6-24 Creatinine 1.03 mg/dL N 0.67-1.17 BUN/Creatinine Ratio 12.6 N 8-20 Calcium 9.4 mg/dL N 8.6-10.3 Egfr Non- 88.0 N >60 Egfr 113.2 N >60 19 CBC Auto Diff 01/29/2017 [facility] White Blood 5.3 10^3/uL N 3.5-10.[address] [place] [address] [phone] Red Blood Count 4.66 10^6/uL N 4.0-5.4 [...] % 0.1 N Comp Metabolic Panel 01/29/2017 [facility] Sodium 139 mmol/L N 133-145 [address] [place] [address] [phone] Potassium 3.9 mmol/L N 3.5-5.0 Chloride 104 [...] 71.0 N >60 Egfr 91.3 N >60 20 Laboratory test finding 01/29/2017 [facility] LDH 102 U/L Low 140-271 [address] [place] [address] [phone] 1 Critical Result LACT:4.9 Called to [id number] at: 19:58:33 by:[id number] Read back by:[facility] Severe Sepsis and Septic Shock Management Bundle Measure requires all lactic acids initially measuring >2.0 mmol/L be repeated. 2 Troponin-I testing on Plasma Separator Tubes (PST) has a known false positive rate of 0.20-0.40%. All positive troponins reflex immediately to secondary confirmatory testing. Using the [employer]oder DxI 800 Access Immunoassay systems, the 99th percentile upper reference limit was demonstrated to be < 0.03 ng/mL. 3 Because ethnic data is not always readily [...] 15-29 5 Kidney failure <15 (or dialysis) 4 Standard intensity warfarin therapeutic range: 2.0-3.0 High intensity warfarin therapeutic range: 2.5-3.5 5 Please note: The following may produce a false positive D Dimer test: - Rheumatoid factor greater than 60 IU/ml - Plasma hemoglobin greater than 0.05 gm/dl - Bilirubin greater than 50 mg/dl - Lipids greater than 1000 mg/dl - FDP greater than 20 ug/ml 6 [place] Severe Sepsis and Septic Shock Management Bundle Measure requires all lactic acids initially measuring >2.0 mmol/L be repeated. 7 Because ethnic data is not always [...] 5 Kidney failure <15 (or dialysis) 8 Troponin-I testing on Plasma Separator Tubes (PST) has a known false positive rate of 0.20-0.40%. All positive troponins reflex immediately to secondary confirmatory testing. Using the TweetMemeI 800 Access Immunoassay systems, the 99th percentile upper reference limit was demonstrated to be < 0.03 ng/mL. 9 Because ethnic data is not always readily [...] 15-29 5 Kidney failure <15 (or dialysis) 10 Because ethnic data is not always [...] 5 Kidney failure <15 (or dialysis) 11 Normal Range 180 to 914 Indeterminate Range 145 to 180 Deficient Range <145 12 FASTING 12 HOUR 13 FASTING 12 HOUR 14 FASTING 12 HOUR 15 Desirable: <150 Borderline High: 150-199 High: 200-499 Very High: >500 16 Desirable: <200 Borderline High: 200-239 High: >239 17 Low: <40 Desirable: 40-60 High: >60 18 Desirable: <100 Near Optimal: 100-129 Borderline High: 130-159 High: 160-189 Very High: >189 19 Because ethnic data is not always readily [...] 15-29 5 Kidney failure <15 (or dialysis) 20 Because ethnic data is not always readily [...] dialysis) Procedures Date Code Description Status 04/24/2019 46098 EKG Tracing & Interpretation Completed 03/22/2019 73560 ECHO Transthorasic Realtime 2D W Doppler & Color Flow Hosp Completed 06/22/2014 67221 Diffusing Capacity Completed 06/22/2014 53736 Spirometry Incl Graphic Record Completed 06/22/2014 11606 ECHO Transthorasic Realtime 2D W Doppler & Color Flow Hosp Completed Encounters Type Date Location Provider Dx Diagnosis Office Visit 03/09/2019 [facility] Internal Deepthi Banuelos MD F41.9 Anxiety disorder, 10:00a Medicine - Ccm[facility] unspecified G47.00 Insomnia, unspecified Office Visit 01/27/2019 9:20a [facility] Internal Deepthi Banuelos F41.9 Anxiety disorder, Medicine - Ccmob unspecified C81.70 Other Hodgkin lymphoma, unspecified site G47.00 Insomnia, unspecified Office Visit 01/06/2019 [facility] Dermatology Ramana Moreira, 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 Office Visit 12/27/2018 [facility] Internal Deepthi Banuelos, D48.5 Neoplasm of uncertain 9:40a Medicine - Suite behavior of skin R R03.0 Elevated blood-pressure reading, w/o diagnosis of htn F17.210 Nicotine dependence, cigarettes, uncomplicated F41.9 Anxiety disorder, unspecified L98.9 Disorder of the skin and subcutaneous tissue, unspecified Office Visit 09/20/2018 10:00a [facility] Jennifer Banuelos, F41.9 Anxiety disorder, Medicine - MD unspecified Suite R Office Visit 06/28/2018 7:40a [facility] Internal Lane N50.89 Other specified Medicine - Amna, disorders of the Suite R M.D. male genital organs Z23 Encounter for immunization Office Visit 05/16/2018 8:00a [facility] Internal Lane Woo, F41.0 Panic disorder Medicine - M.DChristina [episodic Suite R paroxysmal anxiety] Office Visit 03/24/2018 3:00p [facility] Internal [address] Woo R53.83 Other fatigue Medicine - M.DChristina Suite R Office Visit 02/10/2018 3:20p [facility] Internal Lane Woo, Z00.01 Encounter for Medicine - MChristinaDChristina general adult Suite R medical exam w abnormal findings R53.83 Other fatigue R19.4 Change in bowel habit C81.70 Other Hodgkin lymphoma, unspecified site Z13.220 Encounter for screening for lipoid disorders F17.210 Nicotine dependence, cigarettes, uncomplicated Z00.00 Encntr for general adult medical exam w/o abnormal findings Office Visit 04/01/2011 Neurosurgery Carlton Wolf 722.10 Intervertebral Disc 2:15p Services Of [facility] Clementine Morales 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 Depending on the results I may order an ultrasound of your thyroid. Your ECHO on 02/09/19 showed an ejection fraction of 45-50% which is a little bit below normal. Prolonged fastheart rates can sometimes cause this. Please measure your heart rates at home using a stopwatch and record in a log book(some watches or heart monitors can also do this).Follow up:Please follow-up with Dr. Banuelos (currently scheduled for 05/05).R51 HeadacheComments: Can trial tylenol and ibuprofen. Stay well hydrated.C81.70 Other Hodgkin lymphoma, unspecified siteF41.9 Anxiety disorder, kgklzryfiraF74.30 Lower abdominal pain, unspecifiedComments:If not improved within next week we will refer you to Urology.
[2019-05-18 21:12] LABS: ABS Lymphocytes 1.3 10^3/ul (1.0-4.8); ABS Monocytes 0.4 10^3/ul (0-0.8); ABS Neutrophils 2.5 10^3/ul (1.5-7.7); Eosinophil % 0.1 %; Hematocrit 44 % (42-52); Hemoglobin 15.2 g/dL (14.0-18.0); Lymphocyte % 30.7 %; Mean Corpuscular HGB Conc 35 g/dL (31-36); Mean Corpuscular Hemoglobin 34 pg (27-31); Mean Corpuscular Volume 97 fL (80-94); Mean Platelet Volume 8.6 fL (7.4-10.4); Nucleated Red Blood Cells % 0.2; Platelet Count 190 10^3/uL (150-450); Red Cell Distribution Width 13 % (10-15); White Blood Count 4.3 10^3/uL (3.5-10.8)
[2019-05-18 21:19] LABS: INR 0.93 (0.82-1.09)
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
[2019-05-18 21:32] LABS: Albumin 4.8 g/dL (3.2-5.2); Albumin/Globulin Ratio 1.8 (1-3); BUN/Creatinine Ratio 12.5 (8-20); Calcium 9.9 mg/dL (8.6-10.3); EGFR African American 113.7 (>60); Globulin 2.6 g/dL (2-4); Potassium 3.8 mmol/L (3.5-5.0); Total Bilirubin 1.1 mg/dL (0.2-1.0); Total Protein 7.4 g/dL (6.4-8.9)
[2019-05-18 22:34] VITALS: BP 126/60
== END 2019-05-18 22:33 | disposition home or self-care (01) ==
LOC: ED 15:24
DX: M79.652 Pain in left thigh (principal); R06.02 Shortness of breath; R07.89 Other chest pain; R42 Dizziness and giddiness; Z85.71 Personal history of Hodgkin lymphoma; F17.210 Nicotine dependence, cigarettes, uncomplicated
CPT/HCPCS: 36415; 71046; 80053; 84484; 85025; 85379; 85610; 93005; 99283

== ENCOUNTER 2019-07-04 14:15 | Emergency (ER) | payer OTHER ==
[2019-07-04] MEDS ORDERED: Aspirin 81 mg CHEW TAB* 81 MG TAB.CHEW PO ONE (14:26)
--- OUTSIDE RECORDS SUMMARY | 2019-07-04 14:38 | XMS REPORT | Continuity of Care Document ---
:1990 External Reference #:[id number] Author Name Ruben Wright M.D. (transmitted by agent of provider Ольга Hudson) Address [address] [facility], [place] [address] Care Team Providers Name Role Phone Ernesto Villavicencio M.D. - Hematology & Care Team Information Relay Adjuster Oncology Deepthi Banuelos M.D. - Family Medicine Care Team Information Relay Adjuster Problems Active Problems Provider Date Other Hodgkin lymphoma, unspecified site Lane Woo M.D. Onset: [address] Woo M.D. Onset: 05/16/[address] epididymis [address] Woo M.D. Onset: 06/28/2018 Abdominal pain Justo Anderson MD Onset: 04/24/2019 Anxiety state Justo Anderson MD Onset: 04/24/2019 Headache Justo Anderson MD Onset: 04/24/2019 Tachycardia Justo Anderson MD Onset: 04/24/2019 Social History Type Date Description Comments Sex Unknown Tobacco Use Start: Unknown Light tobacco smoker (10 or fewer cigarettes/day) Smoking Status Reviewed: 06/08/19 Light tobacco smoker (10 or fewer cigarettes/day) [...] History Medications Escitalopram Oxalate 1 by mouth 30tabs F41.9 Deepthi Banuelos MD 02/10/2019 - 10mg every day 03/09/2019 Tablets Immunizations CPT Code Status Date Vaccine Lot # [id number] Given 06/28/2018 Influenza Virus Vaccine, Quadrivalent, Split, [id number] Preservative Free Vital Signs Date Vital Result Comment 06/08/2019 2:03pm Height 67 inches 5'7" Weight 149.00 lb Heart Rate 58 /min BP Systolic Sitting 110 mmHg BP Diastolic Sitting 62 mmHg BMI (Body Mass Index) 23.3 kg/m2 05/10/2019 12:54pm Height 67 inches 5'7" Weight 145.00 lb Heart Rate 66 /min BP Systolic Sitting 128 mmHg Rue reg cuff BP Diastolic Sitting 77 mmHg Rue reg cuff BP Systolic Standing 128 mmHg Rue reg cuff BP Diastolic Standing 81 mmHg Rue reg cuff Respiratory Rate 18 /min BMI (Body Mass Index) 22.7 kg/m2 Ejection Fraction 45-50% Echo 03/22/19 Results Test Date Facility Test Result H/L Range Note CBC Auto 05/18/2019 [facility] White Blood 4.3 10^3/uL Normal 3.5-10.[address] [place], [place] [id number] [phone] Red Blood Count 4.50 10^6/uL Normal 4.18-5.48 Hemoglobin 15.2 g/dL Normal 14.0-18.0 Hematocrit 44 % Normal 42-52 Mean Corpuscular Volume 97 fL High 80-94 Mean Corpuscular Hemoglobin 34 pg High 27-31 Mean Corpuscular HGB Conc 35 g/dL Normal 31-36 Red Cell Distribution Width 13 % Normal 10-15 Platelet Count 190 10^3/uL Normal 150-450 Mean Platelet Volume 8.6 fL Normal 7.4-10.4 Abs Neutrophils 2.5 10^3/uL Normal 1.5-7.7 Abs Lymphocytes 1.3 10^3/uL Normal 1.0-4.8 Abs Monocytes 0.4 10^3/uL Normal 0-0.8 Abs Eosinophils 0.0 10^3/uL Normal 0-0.6 Abs Basophils 0.0 10^3/uL Normal 0-0.2 Abs Nucleated RBC 0.0 10^3/uL Granulocyte % 58.9 % Lymphocyte % 30.7 % Monocyte % 9.9 % Eosinophil % 0.1 % Basophil % 0.4 % Nucleated Red Blood Cells % 0.2 Comp Metabolic 05/18/2019 [facility] Sodium 139 mmol/L Normal 135-[address] [place] [address] [phone] Potassium 3.8 mmol/L Normal 3.5-5.0 Chloride 104 mmol/L Normal 101-111 Co2 Carbon Dioxide 27 mmol/L Normal 22-32 Anion Gap 8 mmol/L Normal 2-11 Glucose 104 mg/dL High 70-100 Blood Urea Nitrogen 12 mg/dL Normal 6-24 Creatinine 0.96 mg/dL Normal 0.67-1.17 BUN/Creatinine Ratio 12.5 Normal 8-20 Calcium 9.9 mg/dL Normal 8.6-10.3 Total Protein 7.4 g/dL Normal 6.4-8.9 Albumin 4.8 g/dL Normal 3.2-5.2 Globulin 2.6 g/dL Normal 2-4 Albumin/Globulin Ratio 1.8 Normal 1-3 Total Bilirubin 1.10 mg/dL High 0.2-1.0 Alkaline Phosphatase 54 U/L Normal 34-104 Alt 46 U/L Normal 7-52 Ast 36 U/L Normal 13-39 Egfr Non- 94.0 >60 Egfr 113.7 >60 1 Laboratory 05/18/2019 [facility] Troponin-I (TnI) 0.00 <0.04 2 test finding [address] ng/[place] [address] [phone] Inr/Protime 05/18/2019 [facility] Inr 0.93 Normal 0.82-1.[address] [place] [address] [phone] Laboratory 05/18/2019 [facility] D Dimer < 200 Normal Less 4 test finding [address] Quantitative ng/mL Than [address] [place] [address] [phone] Order 04/24/2019 [facility] In-House EKG <pending> Urinalysis 04/24/2019 [facility] Urine Color Yellow 5 Profile [address] [place] [address] [phone] Urine Appearance Clear Urine Specific [place] 1.012 Normal 1.010-1.030 Urine pH 7.0 Normal 5-9 Urine Urobilinogen Negative Negative Urine Ketones Negative Negative Urine Protein Negative Negative Urine Leukocytes Negative Negative Urine Blood Negative Negative Urine Nitrite Negative Negative Urine Bilirubin Negative Negative Urine Glucose Negative Negative Laboratory 04/24/2019 [facility] Free T4 (Free 0.76 Normal 0.61-1.12 test finding [address] [place] [address] Thyroxine) ng/[place] [address] [phone] T3 Free 3.60 pg/mL Normal 2.5-3.9 TSH (Thyroid Stim Horm) 1.65 mcIU/mL Normal 0.34-5.60 Erythrocyte Sed Rate 0 mm/Hr Normal 0-14 Urinalysis Profile 04/24/2019 [facility] Urine Color Colorless [address] [place] [address] [phone] Urine Appearance Clear Urine Specific [place] 1.003 Low 1.010-1.030 Urine pH 8.0 Normal 5-9 Urine Urobilinogen Negative Negative Urine Ketones Negative Negative Urine Protein Negative Negative Urine Leukocytes Negative Negative Urine Blood Negative Negative Urine Nitrite Negative Negative Urine Bilirubin Negative Negative Urine Glucose Negative Negative Laboratory test 04/24/2019 [facility] Magnesium 2.2 mg/dL Normal 1.9-2.[address] [place] [address] [phone] Comp Metabolic 04/24/2019 [facility] Sodium 139 mmol/L Normal 135-[address] [place] [address] [phone] Potassium 4.1 mmol/L Normal 3.5-5.0 Chloride 102 [...] Egfr Non- 87.6 >60 Egfr 106.0 >60 6 CBC Auto 04/24/2019 [facility] White Blood 4.4 10^3/uL Normal 3.5-10.[address] [place] [address] [phone] Red Blood Count 4.86 10^6/uL Normal 4.18-5.48 [...] % Nucleated Red Blood Cells % 0.1 CBC Auto 02/09/2019 [facility] White Blood 5.7 10^3/uL Normal 3.5-10.[address] [place] [address] [phone] Red Blood Count 4.97 10^6/uL Normal 4.18-5.48 [...] Red Blood Cells % 0.0 Laboratory 02/09/2019 [facility] Lactic 4.9 mmol/L Critical 0.5-2.0 7 test finding [address] [place] [address] [phone] Troponin-I (TnI) 0.00 ng/mL <0.04 8 Comp Metabolic 02/09/2019 [facility] Sodium 144 mmol/L Normal 135-[address] [place] [address] [phone] Potassium 3.6 mmol/L Normal 3.5-5.0 Chloride 105 [...] Egfr Non- 85.7 >60 Egfr 103.7 >60 9 Laboratory test 02/09/2019 [facility] Lipase 36 U/L Normal 11.0-82.[address] [place], [place] [address] [phone] C Reactive Protein 11.01 mg/L High <8.01 TSH (Thyroid Stim Horm) 0.87 mcIU/mL Normal 0.34-5.60 CBC Auto 02/01/2019 [facility] White Blood 6.8 10^3/uL Normal 3.5-10.8 Diff [address] [place] [address] [phone] Red Blood Count 4.56 10^6/uL Normal 4.18-5.48 [...] Red Blood Cells % 0 Inr/Protime 02/01/2019 [facility] Inr 0.91 Normal 0.82-1.[address] [place], [place] [id number] [phone] Laboratory test 02/01/2019 [facility] Partial 27.6 Normal 26.0 -36.[address] [place] [address] Time PTT [phone] D Dimer Quantitative < 200 ng/mL Normal Less Than 230 11 Lactic Acid 1.7 mmol/L Normal 0.5-2.0 12 Comp Metabolic 02/01/2019 [facility] Sodium 141 mmol/L Normal 135-[address] [place] [address] [phone] Potassium 3.9 mmol/L Normal 3.5-5.0 Chloride 106 [...] Egfr Non- 88.6 >60 Egfr 107.2 >60 13 Laboratory test 02/01/2019 [facility] Troponin-I (TnI) 0.03 ng/ mL <0.04 [address] [place] [address] [phone] B-Type Natriuretic Peptide BNP 6 pg/mL <=100 CBC Auto 01/27/2019 [facility] White Blood 3.7 10^3/uL Normal 3.5-10.[address] [place] [address] [phone] Red Blood Count 4.86 10^6/uL Normal 4.18-5.48 [...] Blood Cells % 0 Comp Metabolic 01/27/2019 [facility] Sodium 139 mmol/L Normal 135-[address] [place] [address] [phone] Potassium 4.2 mmol/L Normal 3.5-5.0 Chloride 101 [...] Egfr Non- 92.8 >60 Egfr 112.3 >60 15 1 Because ethnic data is not always [...] 5 Kidney failure <15 (or dialysis) 2 Troponin-I testing on Plasma Separator Tubes (PST) has a known false positive rate of 0.20-0.40%. All positive troponins reflex immediately to secondary confirmatory testing. Using the [employer] DxI 800 Access Immunoassay systems, the 99th percentile upper reference limit was demonstrated to be < 0.03 ng/mL. 3 Standard intensity warfarin therapeutic range: 2.0-3.0 High intensity warfarin therapeutic range: 2.5-3.5 4 Please note: The following may produce a false positive D Dimer test: - Rheumatoid factor greater than 60 IU/ml - Plasma hemoglobin greater than 0.05 gm/dl - Bilirubin greater than 50 mg/dl - Lipids greater than 1000 mg/dl - FDP greater than 20 ug/ml 5 [id number] 6 Because ethnic data is not always readily [...] 15-29 5 Kidney failure <15 (or dialysis) 7 Critical Result LACT:4.9 Called to [id number] at: 19:58:33 by:[id number] Read back by:[id number] [facility] Severe Sepsis and Septic Shock Management Bundle Measure requires all lactic acids initially measuring >2.0 mmol/L be repeated. 8 Troponin-I testing on Plasma Separator Tubes (PST) has a known false positive rate of 0.20-0.40%. All positive troponins reflex immediately to secondary confirmatory testing. Using the [employer] DxI 800 Access Immunoassay systems, the 99th [...] 5 Kidney failure <15 (or dialysis) 10 Standard intensity warfarin therapeutic range: 2.0-3.0 High intensity warfarin therapeutic range: 2.5-3.5 11 Please note: The following may produce a false positive D Dimer test: - Rheumatoid factor greater than 60 IU/ml - Plasma hemoglobin greater than 0.05 gm/dl - Bilirubin greater than 50 mg/dl - Lipids greater than 1000 mg/dl - FDP greater than 20 ug/ml 12 INS Severe Sepsis and Septic Shock Management Bundle Measure requires all lactic acids initially measuring >2.0 mmol/L be repeated. 13 Because ethnic data is not always readily [...] 15-29 5 Kidney failure <15 (or dialysis) 14 Troponin-I testing on Plasma Separator Tubes (PST) has a known false positive rate of 0.20-0.40%. All positive troponins reflex immediately to secondary confirmatory testing. Using the [employer] Access Immunoassay systems, the 99th percentile upper reference limit was demonstrated to be < 0.03 ng/mL. 15 Because ethnic data is not always readily [...] dialysis) Procedures Date Code Description Status 05/10/2019 67704 EKG Tracing & Interpretation Completed 04/24/2019 80610 EKG Tracing & Interpretation Completed 03/22/2019 06964 ECHO Transthorasic Realtime 2D W Doppler & Color Flow Hosp Completed Medical Devices Description No Information Available Encounters Type Date Location Provider Dx Diagnosis Office Visit 05/10/2019 [facility] Dennis Ambriz R00.0 Tachycardia, 1:00p Of Bassam Rea M.D. unspecified R07.9 Chest pain, unspecified I42.9 Cardiomyopathy, unspecified Office Visit 05/05/2019 9:40a [facility] Deepthi Banuelos, F41.9 Anxiety disorder, Medicine - [facility] unspecified R00.0 Tachycardia, unspecified R93.1 Abnormal findings on dx imaging of heart and cor circ E04.1 Nontoxic single thyroid nodule Office Visit 04/24/2019 2:00p [facility] Internal Justo Anderson MD R10.30 Lower abdominal Medicine - Suite pain, unspecified R R51 Headache R00.0 Tachycardia, unspecified C81.70 Other Hodgkin lymphoma, unspecified site F41.9 Anxiety disorder, unspecified Office Visit 03/09/2019 10:00a [facility] Internal Deepthi Banuelos, F41.9 Anxiety disorder, Medicine - [place] MD unspecified G47.00 Insomnia, unspecified Office Visit 01/27/2019 9:20a [facility] Internal Deepthi Banuelos, F41.9 Anxiety disorder, Medicine - [place] MD unspecified C81.70 Other Hodgkin lymphoma, unspecified site G47.00 Insomnia, unspecified Office Visit 01/06/2019 [facility] Ramana Moreira, L81.4 Other melanin 8:30a MD hyperpigmentation Office Visit 12/27/2018 [facility] Internal Deepthichen Banuelos, D48.5 Neoplasm of uncertain 9:40a Medicine - Suite MD behavior of skin R R03.0 Elevated blood-pressure reading, w/o diagnosis of htn F17.210 Nicotine dependence, cigarettes, uncomplicated F41.9 Anxiety disorder, unspecified L98.9 Disorder of the skin and subcutaneous tissue, unspecified Assessments Date Code Description Provider 06/08/2019 R51 Headache Ruben Wright M.D. 05/10/2019 R00.0 Tachycardia, unspecified Dennis Rea M.D. 05/10/2019 R07.9 Chest pain, unspecified Dennis Rea M.D. 05/10/2019 I42.9 Cardiomyopathy, unspecified Dennis Rea M.D. 05/05/2019 F41.9 Anxiety disorder, unspecified Deepthi Banuelos MD 05/05/2019 R00.0 Tachycardia, unspecified Deepthi Banuelos MD 05/05/2019 R93.1 Abnormal findings on diagnostic Deepthi Banuelos MD imaging of heart and coronar 05/05/2019 E04.1 Nontoxic single thyroid nodule Deepthi Banuelos MD 04/24/2019 R10.30 Lower abdominal pain, unspecified Justo Anderson MD 04/24/2019 R51 Headache Justo Anderson MD 04/24/2019 R00.0 Tachycardia, unspecified Justo Anderson MD 04/24/2019 C81.70 Other Hodgkin lymphoma, unspecified Justo Anderson MD site 04/24/2019 F41.9 Anxiety disorder, unspecified Justo Anderson MD 03/22/2019 Z51.81 Encounter for therapeutic drug level Domingo Parker M.D. monitoring 03/09/2019 F41.9 Anxiety disorder, unspecified Deepthi Banuelos MD 03/09/2019 G47.00 Insomnia, unspecified Deepthi Banuelos MD 01/27/2019 F41.9 Anxiety disorder, unspecified Deepthi Banuelos MD 01/27/2019 C81.70 Other Hodgkin lymphoma, unspecified Deepthi Banuelos MD site 01/27/2019 G47.00 Insomnia, unspecified Deepthi Banuelos MD 01/06/2019 L81.4 Other melanin hyperpigmentation Ramana Moreira MD 12/27/2018 D48.5 Neoplasm of uncertain behavior of skin Deepthi Banuelos MD 12/27/2018 R03.0 Elevated blood-pressure reading, Deepthi Banuelos MD without diagnosis of hypert 12/27/2018 F17.210 Nicotine dependence, cigarettes, Deepthi Banuelos MD uncomplicated 12/27/2018 F41.9 Anxiety disorder, unspecified Deepthi Banuelos MD 12/27/2018 L98.9 Disorder of the skin and subcutaneous Deepthi Banuelos MD tissue, unspecified Plan of Treatment Future Appointment(s):07/19/2019 9:00 am - Dennis Rea M.D. at [facility]06/09/2019 8:45 am - Ica ECHO Schedule at [facility]06/09/2019 9:15 am - Dennis Rea M.D. at [facility] 9:20 am - Deepthi Banuelos MD at [facility] Internal Medicine - [facility]06/08/2019 - Ruben Wright M.D.R51 Headache Functional Status Description No Information Available Mental Status Description No Information Available Referrals Refer to Dr Reason for Referral Status Appt Date Edy Asif DO, FACC young healthy male with past hx of tx Sent 2018 for Lymphoma with adriamycin in 2009, now experiencing frequent episodes of tachycardia, at rest and with exertion, with frequent ER visits for chest pain. He also has anxiety, past excess alcohol consumption and is cutting down on smoking. [address] [place] [address] [phone] Krystyna Watson LMSW pt with severe anxiety and MDD, and co existing Sent alcohol abuse [address] [place] [address] [place] [address] [phone] Ernesto Villavicencio M.D. 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
--- OUTSIDE RECORDS SUMMARY | 2019-07-04 14:38 | XMS REPORT | Continuity of Care Document ---
:1990 External Reference #:[id number] Author Name Ruben Wright M.D. (transmitted by agent of provider Ольга Hudson) Address [address], [place] [address] Care Team Providers Name Role Phone Ernesto Villavicencio M.D. - Hematology & Care Team Information Election Assistant [phone] Oncology Deepthi Banuelos M.D. - Family Medicine Care Team Information Election Assistant [phone] Problems Active Problems Provider Date Other Hodgkin [...] (10 or fewer cigarettes/day) Smoking Status Reviewed: 07/03/19 Light tobacco smoker (10 or fewer cigarettes/day) ETOH Use Drinks 5 Alcoholic Occasionally on Beverages Per Week weekends per pt as of 07/03/19 Tobacco Use Start: Unknown Light tobacco smoker (10 or fewer cigarettes/day) Recreational Drug Use Denies Drug Use Exercise Type/Frequency Exercises regularly bikes 2-3x/week for 90 min Allergies, Adverse Reactions, Alerts Description No Known [...] CPT Code Status Date Vaccine Lot # [id number] Given 06/28/2018 Influenza Virus Vaccine, Quadrivalent, Split, [id number] Preservative Free Vital Signs Date Vital Result Comment 07/03/2019 9:13am Height 67 inches 5'7" Weight 151.00 lb Heart Rate 65 /min BP Systolic Sitting 115 mmHg BP Diastolic Sitting 66 mmHg BMI (Body Mass Index) 23.6 kg/m2 06/08/2019 2:03pm Height 67 inches 5'7" Weight 149.00 lb Heart Rate 58 /min BP Systolic Sitting 110 mmHg BP Diastolic Sitting 62 mmHg BMI (Body Mass Index) 23.3 kg/m2 Results Test Date Facility Test Result H/L Range Note Laboratory test 06/20/2019 [facility] Lactic Acid 1.0 mmol/L Normal 0.5-2.0 [address] [place] [address] [phone] CBC Auto Diff 06/08/2019 [facility] White Blood 4.3 10^3/uL Normal 3.5-10.[address] [place] [address] [phone] Red Blood Count 4.48 10^6/uL Normal 4.18-5.48 Hemoglobin 15.2 g/dL Normal 14.0-18.0 Hematocrit 44 % Normal 42-52 Mean Corpuscular Volume 97 fL High 80-94 Mean Corpuscular Hemoglobin 34 pg High 27-31 Mean Corpuscular HGB Conc 35 g/dL Normal 31-36 Red Cell Distribution Width 13 % Normal 10-15 Platelet Count 168 10^3/uL Normal 150-450 Mean Platelet Volume 9.4 fL Normal 7.4-10.4 Abs Neutrophils 2.9 10^3/uL Normal 1.5-7.7 Abs Lymphocytes 0.9 10^3/uL Low 1.0-4.8 Abs Monocytes 0.5 10^3/uL Normal 0-0.8 Abs Eosinophils 0.0 10^3/uL Normal 0-0.6 Abs Basophils 0.0 10^3/uL Normal 0-0.2 Abs Nucleated RBC 0.0 10^3/uL Granulocyte % 67.1 % Lymphocyte % 21.5 % Monocyte % 10.6 % Eosinophil % 0.5 % Basophil % 0.3 % Nucleated Red Blood Cells % 0.0 Laboratory test 06/08/2019 [facility] Erythrocyte Sed 5 mm/Hr Normal 0-[address] [place] [address] [phone] C Reactive Protein < 1.00 mg/L Normal <8.01 Lyme Screen W/ Reflex To WB Negative Negative CBC Auto 05/18/2019 [facility] White Blood 4.3 10^3/uL Normal 3.5-10.[address] [place] [address] [phone] Red Blood Count 4.50 10^6/uL Normal 4.18-5.48 [...] Blood Cells % 0.2 Comp Metabolic 05/18/2019 [facility] Sodium 139 mmol/L Normal 135-[address] [place] [address] [phone] Potassium 3.8 mmol/L Normal 3.5-5.0 Chloride 104 [...] Egfr Non- 94.0 >60 Egfr 113.7 >60 2 Laboratory 05/18/2019 [facility] Troponin-I (TnI) 0.00 <0.04 [address] ng/[place] [address] [phone] Inr/Protime 05/18/2019 [facility] Inr 0.93 Normal 0.82-1.[address] [place] [address] [phone] Laboratory 05/18/2019 [facility] D Dimer < 200 Normal Less 5 test finding [address] Quantitative ng/mL Than [address] [place] [address] [phone] Order 04/24/2019 [facility] In-House EKG <pending> Urinalysis 04/24/2019 [facility] Urine Color Yellow [address] [place] [address] [phone] Urine Appearance Clear Urine Specific [place] 1.012 Normal 1.010-1.030 Urine pH 7.0 Normal 5-9 Urine Urobilinogen Negative Negative Urine Ketones Negative Negative Urine Protein Negative Negative Urine Leukocytes Negative Negative Urine Blood Negative Negative Urine Nitrite Negative Negative Urine Bilirubin Negative Negative Urine Glucose Negative Negative Laboratory 04/24/2019 [facility] Free T4 (Free 0.76 Normal 0.61-1.12 test finding 101 [facility] Thyroxine) ng/[place] [address] [phone] T3 Free 3.60 pg/mL Normal 2.5-3.9 TSH (Thyroid Stim Horm) 1.65 mcIU/mL Normal 0.34-5.60 Erythrocyte Sed Rate 0 mm/Hr Normal 0-14 Urinalysis Profile 04/24/2019 [facility] Urine Color Colorless [address] [place] [address] [phone] Urine Appearance Clear Urine Specific [place] 1.003 Low 1.010-1.030 Urine pH 8.0 Normal 5-9 Urine Urobilinogen Negative Negative Urine Ketones Negative Negative Urine Protein Negative Negative Urine Leukocytes Negative Negative Urine Blood Negative Negative Urine Nitrite Negative Negative Urine Bilirubin Negative Negative Urine Glucose Negative Negative Laboratory test 04/24/2019 [facility] Magnesium 2.2 mg/dL Normal 1.9-2.7 finding [address] [place] [address] [phone] Comp Metabolic 04/24/2019 [facility] Sodium 139 mmol/L Normal 135-145 Panel [address] [place] [address] [phone] Potassium 4.1 mmol/L Normal 3.5-5.0 Chloride 102 [...] Egfr Non- 87.6 >60 Egfr 106.0 >60 7 CBC Auto 04/24/2019 [facility] White Blood 4.4 10^3/uL Normal 3.5-10.[address] [place] [address] [phone] Red Blood Count 4.86 10^6/uL Normal 4.18-5.48 [...] Blood Cells % 0.1 CBC Auto 02/09/2019 [facility] White Blood 5.7 10^3/uL Normal 3.5-10.[address] [place] [address] [phone] Red Blood Count 4.97 10^6/uL Normal 4.18-5.48 [...] Red Blood Cells % 0.0 Laboratory 02/09/2019 [facility] Lactic 4.9 mmol/L Critical 0.5-2.0 8 test finding [address] [place] [address] [phone] Troponin-I (TnI) 0.00 ng/mL <0.04 9 Comp Metabolic 02/09/2019 [facility] Sodium 144 mmol/L Normal 135-[address] [place] [address] [phone] Potassium 3.6 mmol/L Normal 3.5-5.0 Chloride 105 [...] Egfr Non- 85.7 >60 Egfr 103.7 >60 10 Laboratory test 02/09/2019 [facility] Lipase 36 U/L Normal 11.0-82.[address] [place] [address] [phone] C Reactive Protein 11.01 mg/L High <8.01 TSH (Thyroid Stim Horm) 0.87 mcIU/mL Normal 0.34-5.60 CBC Auto 02/01/2019 [facility] White Blood 6.8 10^3/uL Normal 3.5-10.[address] [place] [address] [phone] Red Blood Count 4.56 10^6/uL Normal 4.18-5.48 [...] Red Blood Cells % 0 Inr/Protime 02/01/2019 [facility] Inr 0.91 Normal 0.82-1.[address] [place] [address] [phone] Laboratory test 02/01/2019 [facility] Partial 27.6 Normal 26.0 -36.[address] [place] [address] Time PTT [phone] D Dimer Quantitative < 200 ng/mL Normal Less Than 230 12 Lactic Acid 1.7 mmol/L Normal 0.5-2.0 13 Comp Metabolic 02/01/2019 [facility] Sodium 141 mmol/L Normal 135-[address] [place] [address] [phone] Potassium 3.9 mmol/L Normal 3.5-5.0 Chloride 106 [...] Egfr Non- 88.6 >60 Egfr 107.2 >60 14 Laboratory test 02/01/2019 [facility] Troponin-I (TnI) 0.03 ng/ mL <0.04 [address] [place] [address] [phone] B-Type Natriuretic Peptide BNP 6 pg/mL <=100 CBC Auto 01/27/2019 [facility] White Blood 3.7 10^3/uL Normal 3.5-10.[address] [place] [address] [phone] Red Blood Count 4.86 10^6/uL Normal 4.18-5.48 [...] Blood Cells % 0 Comp Metabolic 01/27/2019 [facility] Sodium 139 mmol/L Normal 135-[address] [place] [address] [phone] Potassium 4.2 mmol/L Normal 3.5-5.0 Chloride 101 [...] Egfr Non- 92.8 >60 Egfr 112.3 >60 16 1 [facility] Severe Sepsis and Septic Shock Management Bundle Measure requires all lactic acids initially measuring >2.0 mmol/L be repeated. 2 Because ethnic data is not always [...] 5 Kidney failure <15 (or dialysis) 3 Troponin-I testing on Plasma Separator Tubes (PST) has a known false positive rate of 0.20-0.40%. All positive troponins reflex immediately to secondary confirmatory testing. Using the [employer] DxI 800 Access Immunoassay systems, the 99th percentile upper reference limit was demonstrated to be < 0.03 ng/mL. 4 Standard intensity warfarin therapeutic range: 2.0-3.0 High intensity warfarin therapeutic range: 2.5-3.5 5 Please note: The following may produce a false positive D Dimer test: - Rheumatoid factor greater than 60 IU/ml - Plasma hemoglobin greater than 0.05 gm/dl - Bilirubin greater than 50 mg/dl - Lipids greater than 1000 mg/dl - FDP greater than 20 ug/ml 6 [id number] 7 Because ethnic data is not always [...] 5 Kidney failure <15 (or dialysis) 8 Critical Result LACT:4.9 Called to [id number] at: 19:58:33 by:[id number] Read back by:[id number] [facility] Severe Sepsis and Septic Shock Management Bundle Measure requires all lactic acids initially measuring >2.0 mmol/L be repeated. 9 Troponin-I testing on Plasma Separator Tubes (PST) has a known false positive rate of 0.20-0.40%. All positive troponins reflex immediately to secondary confirmatory testing. Using the [employer] DxI 800 Access Immunoassay systems, the 99th [...] 5 Kidney failure <15 (or dialysis) 11 Standard intensity warfarin therapeutic range: 2.0-3.0 High intensity warfarin therapeutic range: 2.5-3.5 12 Please note: The following may produce a false positive D Dimer test: - Rheumatoid factor greater than 60 IU/ml - Plasma hemoglobin greater than 0.05 gm/dl - Bilirubin greater than 50 mg/dl - Lipids greater than 1000 mg/dl - FDP greater than 20 ug/ml 13 [place] Severe Sepsis and Septic Shock Management Bundle Measure requires all lactic acids initially measuring >2.0 mmol/L be repeated. 14 Because ethnic data is not always readily [...] 15-29 5 Kidney failure <15 (or dialysis) 15 Troponin-I testing on Plasma Separator Tubes (PST) has a known false positive rate of 0.20-0.40%. All positive troponins reflex immediately to secondary confirmatory testing. Using the [employer] DxI 800 Access Immunoassay systems, the 99th percentile upper reference limit was demonstrated to be < 0.03 ng/mL. 16 Because ethnic data is not always readily [...] (or dialysis) Procedures Date Code Description Status 06/09/2019 04040 Stress Test Completed 05/10/2019 33476 EKG Tracing & Interpretation Completed 04/24/2019 29787 EKG Tracing & Interpretation Completed 03/22/2019 28153 ECHO Transthorasic Realtime 2D W Doppler & Color Flow Hosp Completed Medical Devices Description No Information Available Encounters Type Date Location Provider Dx Diagnosis Office Visit 06/08/2019 [facility] Internal Ruben E. R51 Headache 2:00p Medicine - [facility] Wright M.D. Office Visit 05/10/2019 [facility] Dennis Ambriz R00.0 Tachycardia, 1:00p Of Bassam Rea M.D. unspecified R07.9 Chest pain, unspecified I42.9 Cardiomyopathy, unspecified Office Visit 05/05/2019 9:40a [facility] Internal Deepthi Banuelos, F41.9 Anxiety disorder, Medicine - [facility] COMER unspecified R00.0 Tachycardia, unspecified R93.1 Abnormal findings on dx imaging of heart and cor circ E04.1 Nontoxic single thyroid nodule Office Visit 04/24/2019 2:00p [facility] Internal Justo Anderson MD R10.30 Lower abdominal Medicine - Suite pain, unspecified R R51 Headache R00.0 Tachycardia, unspecified C81.70 Other Hodgkin lymphoma, unspecified site F41.9 Anxiety disorder, unspecified Office Visit 03/09/2019 10:00a [facility] Internal Deepthi Banuelos, F41.9 [facility] G47.00 Insomnia, unspecified Office Visit 01/27/2019 9:20a [facility] Internal Deepthi Banuelos, F41.9 Anxiety disorder, Medicine - [facility] unspecified C81.70 Other Hodgkin lymphoma, unspecified site G47.00 Insomnia, unspecified Office Visit 01/06/2019 [facility] Dermatology Ramana Roslynzer, L81.4 Other melanin 8:30a MD hyperpigmentation Assessments Date Code Description Provider 07/03/2019 R51 Headache Ruben Wright M.D. 06/09/2019 R00.0 Tachycardia, unspecified Dennis Rea M.D. 06/08/2019 R51 Headache Ruben Wright M.D. 05/10/2019 R00.0 Tachycardia, unspecified Dennis Rea M.D. 05/10/2019 R07.9 Chest pain, unspecified Dennis Rea M.D. 05/10/2019 I42.9 Cardiomyopathy, unspecified Dennis Rea M.D. 05/05/2019 F41.9 Anxiety disorder, unspecified Deepthi Banuelos MD 05/05/2019 R00.0 Tachycardia, unspecified Deepthi Banuelos MD 05/05/2019 R93.1 Abnormal findings on diagnostic imaging Deepthi Banuelos MD of heart and coronar 05/05/2019 E04.1 Nontoxic [...] L81.4 Other melanin hyperpigmentation Ramana Moreira MD Plan of Treatment Future Appointment(s):07/19/2019 9:00 am - Dennis Rea M.D. at [facility]08/07/2019 9:20 am - Deepthi Banuelos MD at [facility] Internal Medicine - [facility]07/03/2019 - Ruben Wright M.D.R51 HeadacheNew Xrays:CT Brain Wo, Ordered: 07/03/19 Functional Status Description No Information Available Mental Status Description No Information Available Referrals Refer to Reason for Referral Status Appt Date Edy Asif, DO, [facility] young healthy male with past hx of tx Sent 2018 for Lymphoma with adriamycin in 2009, now experiencing frequent episodes of tachycardia, at rest and with exertion, with frequent ER visits for chest pain. He also has anxiety, past excess alcohol consumption and is cutting down on smoking. [address] [place] [address] [phone] Spoth, Krystyna, CHARLES pt with severe anxiety and MDD, and co existing Sent alcohol abuse [address] [place] [address] [place] [address] [phone] Ernesto Villavicencio M.D. annual follow up of patient with Hodgkin's Sent 2018 lymphoma in remission [address] [place] [address] [phone]
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
[2019-07-04 15:12] LABS: ABS Lymphocytes 0.8 10^3/ul (1.0-4.8); ABS Monocytes 0.5 10^3/ul (0-0.8); ABS Neutrophils 4.4 10^3/ul (1.5-7.7); Eosinophil % 0.1 %; Hematocrit 45 % (42-52); Lymphocyte % 13.8 %; Mean Corpuscular HGB Conc 35 g/dL (31-36); Mean Corpuscular Hemoglobin 34 pg (27-31); Mean Corpuscular Volume 96 fL (80-94); Mean Platelet Volume 8.5 fL (7.4-10.4); Nucleated Red Blood Cells % 0.1; Platelet Count 192 10^3/uL (150-450); Red Blood Count 4.72 10^6 /uL (4.18-5.48); Red Cell Distribution Width 13 % (10-15); White Blood Count 5.7 10^3/uL (3.5-10.8)
[2019-07-04 15:34] LABS: Albumin 4.8 g/dL (3.2-5.2); Albumin/Globulin Ratio 1.8 (1-3); BUN/Creatinine Ratio 14.2 (8-20); Calcium 9.6 mg/dL (8.6-10.3); EGFR African American 101.4 (>60); EGFR Non-African American 83.8 (>60); Globulin 2.6 g/dL (2-4); Potassium 3.8 mmol/L (3.5-5.0); Total Bilirubin 1.9 mg/dL (0.2-1.0); Total Protein 7.4 g/dL (6.4-8.9)
[2019-07-04 16:07] LABS: TSH (Thyroid Stimulating Horm) 2.16 mcIU/mL (0.34-5.60)
[2019-07-04 18:35] VITALS: BP 127/71
== END 2019-07-04 18:30 | disposition home or self-care (01) ==
LOC: ED 14:15
DX: R07.89 Other chest pain (principal); F17.210 Nicotine dependence, cigarettes, uncomplicated; Z79.899 Other long term (current) drug therapy
CPT/HCPCS: 36415; 71046; 80053; 82550; 82553; 83605; 83735; 83880; 84443; 84484; 85025; 85379; 93005; 99283; A9270-GY

== ENCOUNTER 2019-11-05 04:03 | Emergency (ER) | payer OTHER ==
[2019-11-05 04:48] LABS: ABS Lymphocytes 0.8 10^3/ul (1.0-4.8); ABS Monocytes 0.6 10^3/ul (0-0.8); ABS Neutrophils 6.4 10^3/ul (1.5-7.7); Hematocrit 39 % (42-52); Hemoglobin 13.6 g/dL (14.0-18.0); Lymphocyte % 10.4 %; Mean Corpuscular HGB Conc 35 g/dL (31-36); Mean Corpuscular Hemoglobin 33 pg (27-31); Mean Corpuscular Volume 95 fL (80-94); Mean Platelet Volume 8.4 fL (7.4-10.4); Nucleated Red Blood Cells % 0.1; Platelet Count 163 10^3/uL (150-450); Red Blood Count 4.08 10^6 /uL (4.18-5.48); Red Cell Distribution Width 12 % (10-15); White Blood Count 7.8 10^3/uL (3.5-10.8)
[2019-11-05 05:06] LABS: Albumin 4.5 g/dL (3.2-5.2); BUN/Creatinine Ratio 15.7 (8-20); Calcium 9.3 mg/dL (8.6-10.3); EGFR Non-African American 87.6 (>60); Globulin 2.2 g/dL (2-4); Potassium 3.3 mmol/L (3.5-5.0); Total Bilirubin 1.8 mg/dL (0.2-1.0); Total Protein 6.7 g/dL (6.4-8.9)
[2019-11-05] MEDS ORDERED: Potassium Chlor TAB* 20 MEQ TAB.ER PO ONE (05:11)
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
--- NOTE | 2019-11-05 07:01 | ED ---
Progress - Progress Note Progress Note: This patient is a sign-out from Dr. Kadi Galvez to Dr. Clifford Etienne at 0700 on 11/05/2019 at shift change pending second troponin, chest x-ray, and disposition. - Results/Orders Results/Orders: CXR: NO ACTIVE CARDIOPULMONARY DISEASE. Dr. Etienne has reviewed this radiology report. 2nd troponin at 0740 negative. Re-Evaluation - Re-Evaluation First Eval Re-Evaluation Time: 09:22 Comment: Discussed results with patient. Patient will be discharged home with dx of chest pain. Patient understands and agrees with this plan. Course/Dx - Course Course Of Treatment: Mr. Carrasco came in concerned because he had the recurrence of the chest pain that was similar to chest pain he had when he discovered that he had a cardiomyopathy. His cardio myopathy's been attributed to Adriamycin treatment for his myeloma. 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 He remained in stable condition here - Diagnoses Provider Diagnoses: Chest pain Discharge ED - Sign-Out/Discharge Documenting (check all that apply): Patient Departure - Discharge, Receiving Sign-Out Receiving patient FROM: Kadi Galvez - Discharge Plan Condition: Stable Disposition: HOME Patient Education Materials: Chest Pain (ED) Referrals: Deepthi Banuelos MD [Primary Care Provider] - 3 Days Additional Instructions: Please follow-up with your primary care physician in 2-3 days. 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 PLEASE RETURN TO THE ER FOR WORSENING OR CHANGING SYMPTOMS. It was a pleasure taking care of you today. - Billing Disposition and Condition Condition: STABLE Disposition: Home - Attestation Statements Document Initiated by Betty: Yes Documenting Scribe: Merrill Senior Provider For Whom Betty is Documenting (Include Credential): Clifford Etienne MD Scribstephanie Attestation: Dakota, Merrill Senior, scribed for Clifford Etienne MD on 11/05/19 at 1335. Scribe Documentation Reviewed: Yes Provider Attestation: The documentation as recorded by the Merrill vásquez accurately reflects the service I personally performed and the decisions made by me, Clifford Etienne MD Status of Scribe Document: Viewed
[2019-11-05 09:42] VITALS: BP 110/64
== END 2019-11-05 09:42 | disposition home or self-care (01) ==
LOC: ED 04:03
DX: R07.89 Other chest pain (principal); R00.0 Tachycardia, unspecified; R06.02 Shortness of breath; R11.0 Nausea; R42 Dizziness and giddiness; R05 Cough; J02.9 Acute pharyngitis, unspecified; R19.7 Diarrhea, unspecified; F41.9 Anxiety disorder, unspecified; F32.9 Major depressive disorder, single episode, unspecified; Z85.71 Personal history of Hodgkin lymphoma; F17.210 Nicotine dependence, cigarettes, uncomplicated
CPT/HCPCS: 36415; 71045; 80053; 83880; 84484; 85025; 93005; 99283; A9270-GY

== ENCOUNTER 2019-12-07 02:25 | Emergency (ER) | payer OTHER ==
[2019-12-07 03:17] LABS: ABS Lymphocytes 0.8 10^3/ul (1.0-4.8); ABS Monocytes 0.5 10^3/ul (0-0.8); ABS Neutrophils 2.9 10^3/ul (1.5-7.7); Eosinophil % 0.2 %; Hematocrit 50 % (42-52); Hemoglobin 17.4 g/dL (14.0-18.0); Lymphocyte % 18.9 %; Mean Corpuscular HGB Conc 35 g/dL (31-36); Mean Corpuscular Hemoglobin 33 pg (27-31); Mean Corpuscular Volume 96 fL (80-94); Mean Platelet Volume 8.5 fL (7.4-10.4); Nucleated Red Blood Cells % 0.1; Platelet Count 230 10^3/uL (150-450); Red Cell Distribution Width 14 % (10-15); White Blood Count 4.2 10^3/uL (3.5-10.8)
[2019-12-07 03:21] LABS: INR 1.03 (0.82-1.09)
[2019-12-07 03:35] LABS: ALT 16 U/L (7-52); AST 29 U/L (13-39); Albumin 5.4 g/dL (3.2-5.2); Alkaline Phosphatase 60 U/L (34-104); Anion Gap 11 mmol/L (2-11); Blood Urea Nitrogen 9 mg/dL (6-24); CO2 Carbon Dioxide 26 mmol/L (22-32); Calcium 10.4 mg/dL (8.6-10.3); Chloride 100 mmol/L (101-111); EGFR African American 94.5 (>60); EGFR Non-African American 78.1 (>60); Globulin 2.7 g/dL (2-4); Glucose 131 mg/dL (70-100); Potassium 3.6 mmol/L (3.5-5.0); Sodium 137 mmol/L (135-145); Total Protein 8.1 g/dL (6.4-8.9)
[2019-12-07 03:36] LABS: Troponin I 0.01 ng/mL (<0.03)
[2019-12-07 03:42] LABS: Alcohol < 10 mg/dL (<10)
[2019-12-07 03:56] LABS: TSH (Thyroid Stimulating Horm) 2.93 mcIU/mL (0.34-5.60)
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
[2019-12-07] MEDS: Ketorolac INJ* 30 MG/ML 1 ML VIAL IM ONE ×2 (06:32→06:50)
[2019-12-07] MEDS ORDERED: LORazepam TAB(*) 1 MG PO ONE (06:39)
[2019-12-07] MEDS ORDERED: LORazepam INJ* 2 MG/ML 1 ML VIAL IV PUSH ONE (06:41)
[2019-12-07] MEDS ORDERED: NS 0.9% 1000 ML** 1,000 ML IV ONE (06:41)
[2019-12-07] MEDS ORDERED: Lorazepam PYXIS KEY PRN (06:41)
[2019-12-07] MEDS ORDERED: Lorazepam PYXIS KEY ONE (06:45)
[2019-12-07 07:30] VITALS: BP 158/94
== END 2019-12-07 07:51 | disposition home or self-care (01) ==
LOC: ED 02:25
DX: R07.89 Other chest pain (principal); R00.2 Palpitations; F17.210 Nicotine dependence, cigarettes, uncomplicated; Z85.72 Personal history of non-Hodgkin lymphomas; Z79.899 Other long term (current) drug therapy
CPT/HCPCS: 36415; 71045; 80053; 80320; 83605; 84443; 84484; 85025; 85379; 85610; 93005; 96361; 96374; 99283; G0480; J1885; J2060

== ENCOUNTER 2019-12-09 08:19 | Emergency (ER) | payer OTHER ==
[2019-12-09] MEDS ORDERED: diPHENhydraMINE IV* 50 MG/ML 1 ml VIAL (BENADRYL) IV ONE (08:43)
[2019-12-09] MEDS ORDERED: Ketorolac INJ* 30 MG/ML 1 ML VIAL IV ONE (08:43)
[2019-12-09] MEDS ORDERED: NS 0.9% 1000 ML** 1,000 ML IV ONE (08:44)
[2019-12-09 09:18] LABS: Albumin 4.5 g/dL (3.2-5.2); BUN/Creatinine Ratio 11.3 (8-20); Calcium 9.8 mg/dL (8.6-10.3); EGFR African American 100.7 (>60); EGFR Non-African American 83.2 (>60); Globulin 2.3 g/dL (2-4); Potassium 3.8 mmol/L (3.5-5.0); Total Bilirubin 1.6 mg/dL (0.2-1.0); Total Protein 6.8 g/dL (6.4-8.9)
[2019-12-09 12:09] VITALS: BP 109/58
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
== END 2019-12-09 12:08 | disposition home or self-care (01) ==
LOC: ED 08:19
DX: R51 Headache (principal); F17.210 Nicotine dependence, cigarettes, uncomplicated; Z79.899 Other long term (current) drug therapy; Z85.72 Personal history of non-Hodgkin lymphomas
CPT/HCPCS: 36415; 70450; 80053; 83605; 93005; 99282; J1200; J1885

== ENCOUNTER 2019-12-17 15:20 | Emergency (ER) | payer OTHER ==
[2019-12-17] MEDS ORDERED: Ibuprofen TAB* 400 MG PO ONE (15:57)
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
[2019-12-17 17:11] VITALS: BP 121/73
== END 2019-12-17 17:10 | disposition home or self-care (01) ==
LOC: ED 15:20
DX: R07.9 Chest pain, unspecified (principal); H53.8 Other visual disturbances; F17.210 Nicotine dependence, cigarettes, uncomplicated; F41.9 Anxiety disorder, unspecified; R42 Dizziness and giddiness; Z79.899 Other long term (current) drug therapy; Z85.72 Personal history of non-Hodgkin lymphomas
CPT/HCPCS: 36415; 84484; 93005; 99282; A9270-GY